=== PATIENT | male | born 1965 | race Caucasian/White ===

== ENCOUNTER 2023-09-23 14:03 | Outpatient (RCR) | payer OTHER, SELFPAY | END 2023-09-30 12:59 | disposition home or self-care (01) | LOC: RPT 14:03 | PROVIDERS: ATTENDING PHYSICIAN Family Medicine | DX: M54.2 Cervicalgia (principal) | CPT/HCPCS: 97110; 97162; 97535 ==

== ENCOUNTER → 2023-09-24 06:51 | Outpatient (REF) | payer OTHER, SELFPAY | LOC: RCS 06:51 | PROVIDERS: ATTENDING PHYSICIAN Nuclear Medicine Nuclear Cardiology; FAMILY PHYSICIAN Family Medicine | DX: R07.9 Chest pain, unspecified (principal); Z13.220 Encounter for screening for lipoid disorders | CPT/HCPCS: 78452; 93017; A9500 ==

== ENCOUNTER 2023-09-25 07:58 | Day surgery (SDC) | payer OTHER, SELFPAY ==
[2023-09-25] VITALS (8 sets, daily range): BP systolic 108–123; BP diastolic 78–91; BMI 29.1
[2023-09-25 09:05] LABS: Hematocrit 44.8 % (39.0-52.0); Hemoglobin 15.8 g/dL (13.0-18.0); Mean Corp Hgb Conc. 35.3 g/dL (33.0-37.0); Mean Corpuscular Hgb 29.8 pg (27.0-31.0); Mean Corpuscular Volume 84.4 fL (80.0-94.0); Mean Platelet Volume 10.4 fL (7.4-10.4); Platelet Count 262 10^3/uL (130-400); Red Blood Cell Count 5.31 10^6/uL (4.70-6.10); Red Cell Dist. Width 12.1 % (11.5-14.5)
--- NOTE | 2023-09-25 11:01 | ITS.CL.CATH ---
Labeler - Catheterization
Cardiac Catheterization
Procedure Report:
LEFT HEART CATHETERIZATION
Date of Procedure: September 25, 2023
Referring: Dr. Margarito Orozco
PROCEDURES:
1. Left heart catheterization with coronary and single-plane left ventriculography
INDICATION: This is a 58-year-old gentleman with a past medical history notable for chest discomfort for the past 8 to 10 months. 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
quickly and pulling his suitcase. He feels the symptoms have been getting worse although have been present for quite some time.
ACCESS: Right radial artery, 6 Chadian sheath
HEMODYNAMICS : (mmHg)
AO (s/d) : 110/79
LV (s/d) : 118/13
LVEDP : 30
CORONARY FINDINGS
DOMINANCE: Right
LEFT MAIN: Normal
LEFT ANTERIOR DESCENDING: The LAD arises normally from the left main and runs in the anterior interventricular groove there is a calcified 50-60% mid LAD stenosis involving the origin of the only sizable diagonal branch which supplies a large
vascular territory. The remainder of the LAD has only minor luminal irregularities and approaches but does not wraparound the apex..
CIRCUMFLEX: The circumflex is a medium caliber nondominant vessel with a long 60% proximal to mid stenosis spanning the origin of the first OM1. The circumflex continues and is noted to have a 90% stenosis in the distal circumflex just before the
bifurcation of OM 2 and OM 3.
RIGHT CORONARY ARTERY: Large-caliber dominant vessel that is occluded in its midportion just beyond an RV marginal branch. The distal vessel is noted to fill via [id number] collaterals and very faint right to right collateral
VENTRICULOGRAPHY: Left ventriculography is performed in an BEAN projection. The digital single-plane left ventricular ejection fraction is estimated at 60%. No regional wall motion abnormalities are noted
RADIATION SUMMARY: Fluoro Time (min): 3.1, Dose (mGy): 232, DAP (Gy.cm2) : 18.5
Closure Device: TR band
CONCLUSIONS
1. Multivessel coronary artery disease with chronic total occlusion of the distal right coronary artery collateralized in a [id number] fashion, diffuse mid circumflex stenosis spanning the origin of OM1, OM 2, and OM 3. Moderate calcific mid
LAD disease spanning the origin of large first diagonal branch.
2. Preserved left ventricular systolic function
RECOMMENDATIONS
1. Consult CT surgery given diffuse nature of coronary disease. Arterial conduits would offer an advantage given graft durability and his age.
Copy to: Dr. Margarito Orozco, Dr. Ivan Crespo
== END 2023-09-25 14:15 | disposition home or self-care (01) ==
LOC: CATH 07:58
PROVIDERS: ATTENDING PHYSICIAN Internal Medicine Interventional Cardiology; CONSULT PHYSICIAN Thoracic Surgery (Cardiothoracic Vascular Surgery); FAMILY PHYSICIAN Family Medicine
DX: I25.10 Atherosclerotic heart disease of native coronary artery without angina pectoris (principal); I25.82 Chronic total occlusion of coronary artery; R07.89 Other chest pain
CPT/HCPCS: 85027; 93458; C1894; Q9967

== ENCOUNTER → 2023-10-06 12:48 | Outpatient (REF) | payer OTHER, SELFPAY | LOC: RCS 12:48 | PROVIDERS: ATTENDING PHYSICIAN Nuclear Medicine Nuclear Cardiology; FAMILY PHYSICIAN Family Medicine | DX: R07.9 Chest pain, unspecified (principal); Z13.220 Encounter for screening for lipoid disorders | CPT/HCPCS: 93306 ==

== ENCOUNTER → 2023-10-14 07:31 | Outpatient (REF) | payer OTHER, SELFPAY | LOC: HWRAD 07:31 | PROVIDERS: ATTENDING PHYSICIAN Thoracic Surgery (Cardiothoracic Vascular Surgery); FAMILY PHYSICIAN Family Medicine | DX: I25.10 Atherosclerotic heart disease of native coronary artery without angina pectoris (principal) | CPT/HCPCS: 71250 ==

== ENCOUNTER 2023-10-22 05:08 | Inpatient (IN) | payer OTHER, SELFPAY ==
[2023-10-09 12:32] VITALS: BMI 29.5
[2023-10-09 12:39] LABS: % Basophils 0.4 % (0-2); % Eosinophils 1.2 % (0-6); % Immature Granulocytes 0.3 % (0-0.5); % Lymphocytes 21.8 % (20.5-51.1); % Monocytes 7.1 % (1.7-9.3); % Neutrophils 69.2 % (42.2-75.2); Absolute Eosinophils 0.1 10^3/uL (0-0.7); Absolute Lymphocytes 1.5 10^3/uL (1.2-3.4); Absolute Monocytes 0.5 10^3/uL (0.1-0.6); Absolute Neutrophils 4.8 10^3/uL (1.4-6.5); Hematocrit 43.8 % (39.0-52.0); Hemoglobin 15.6 g/dL (13.0-18.0); Mean Corp Hgb Conc. 35.6 g/dL (33.0-37.0); Mean Corpuscular Hgb 29.7 pg (27.0-31.0); Mean Corpuscular Volume 83.4 fL (80.0-94.0); Mean Platelet Volume 10.5 fL (7.4-10.4); Nucleated Red Blood Cells % 0 % (-); Platelet Count 274 10^3/uL (130-400); Red Blood Cell Count 5.25 10^6/uL (4.70-6.10); Red Cell Dist. Width 12.2 % (11.5-14.5); White Blood Cell Count 6.9 10^3/uL (4.8-10.8)
[2023-10-09 12:52] LABS: ALT (SGPT) 23 U/L (0-50); AST (SGOT) 26 U/L (17-59); Albumin 4.5 g/dl (3.5-5.0); Alkaline Phosphatase 78 U/L (38-126); Blood Urea Nitrogen 15 mg/dl (9-20); Calcium 9.3 mg/dl (8.4-10.2); Carbon Dioxide 30 mmol/L (22-30); Chloride 102 mmol/L (98-107); Direct Bilirubin 0.2 mg/dl (0.0-0.4); Estimated Creatinine Clearance 65 ml/min; Glucose 95 mg/dl (70-99); INR 0.98; PT 12.8 Sec (11.4-14.6); Potassium 4.4 mmol/L (3.5-5.1); Sodium 141 mmol/L (135-145); Total Bilirubin 0.8 mg/dl (0.2-1.3); Total Protein 6.8 g/dl (6.3-8.2); eGFR > 60.00
[2023-10-09 12:53] LABS: APTT 31.5 Sec (23.4-35.0)
[2023-10-09 13:50] LABS: Urine Albumin Negative (Neg - Trace); Urine Bilirubin Negative (Negative); Urine Character Clear (Clear); Urine Color Yellow; Urine Glucose Negative (Negative); Urine Ketone Negative (Negative); Urine Leukocyte Negative (Negative); Urine Nitrite Negative (Negative); Urine Occult Blood Negative (Negative); Urine Urobilinogen Negative (Neg - 1+)
--- NOTE | 2023-10-09 14:13 | CM ---
CM following for DC planning needs.
CM met w/ patient and spouse during PATs for planned CABG, 10/18.
Patient resides w/ spouse, 3 children 16, 13 11 yo in a RV on his home's property as his home is undergoing renovations.
RV is accessible via 2 SHO.
Functionally, patient is indep. w/ ADLs, mobility without the use of assisted device.
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
Reviewed pre and post op routines.
Soap, shower instructions and Cardiac Surgery booklet provided.
Discussed post op restrictions to include lifting, driving, flying and sternal precautions.
Reviewed post op MD appointments, Cardiac Rehab and visit from CT Transitional Care RN.
Plan is for CABG 10/18
Anticipated DC plan is for home w/ CT Transitional Care RN.
CM to follow.
[2023-10-09 14:18] LABS: Glycohemoglobin (HgbA1c) 5.6 % (4.0-5.6)
[2023-10-22] VITALS (9 sets, daily range): BP systolic 84–125; BP diastolic 61–84; BMI 29.1
[2023-10-22] MEDS: MAGNESIUM OXIDE 500 MG PO (05:28)
[2023-10-22] MEDS: PROTONIX 40 MG PO (05:28)
[2023-10-22] MEDS: BACTROBAN 2% OINTMENT 1 APPLIC NASAL ×2 (05:28→19:12)
[2023-10-22] MEDS: LOPRESSOR 12.5 MG PO (05:30)
--- NOTE | 2023-10-22 06:00 | PTCARENOTE ---
pt admitted into room 2263, VS and weight obtained. pt confirms 2 showers @ home and NPO since 1829 last evening. admission questions and med rec completed. clip prep and CHG cloth bath done. ABO drawn and sent. pre-op meds given. pt now resting
comfortably w @ bedside.
--- NOTE | 2023-10-22 06:22 | W.CVOR.SURPR ---
CVOR Surgeon Immed Pre Op
-
I have examined this patient prior to performance of the scheduled procedure.
The patient's condition is unchanged from the time of the dictated/written History and
Physical and the patient is able to undergo the scheduled procedure.
CABG
[2023-10-22 07:39] LABS: Urine Albumin Negative (Neg - Trace); Urine Bilirubin Negative (Negative); Urine Character Clear (Clear); Urine Color Yellow; Urine Glucose Negative (Negative); Urine Ketone Negative (Negative); Urine Leukocyte Negative (Negative); Urine Nitrite Negative (Negative); Urine Occult Blood Negative (Negative); Urine Urobilinogen Negative (Neg - 1+)
[2023-10-22 08:08] LABS: ACT+ - POC 87 Seconds (82-134)
--- NOTE | 2023-10-22 08:25 | CM ---
Reviewed chart. Mr. Hartman is in the operating room today. Prior to admission he resides with his spouse and three children in a RV to with two steps to enter. He is in the RV temporary as his home is under going renovations. The RV is located
on his property. Prior to admission he was independent with ambulation and adls. He does not have any DME in the home. He has a prescription plan and uses [facility]. Medical work-up in progress. The discharge plan is to return home with his
spouse and a home visit by the Cardiothoracic Transitional Care Nurse when medically stable.
[2023-10-22 10:16] LABS: ACT+ - POC 995 Seconds (82-134)
[2023-10-22 10:17] LABS: B.E. - POC -1.4 mmol/L; Glucose - POC 95 mg/dl (70-99); HCO3 - POC 22 mmol/L (21-29); Hematocrit - POC 36 % PCV (42-52); Hemodilution- POC No; Hemoglobin Calculated - POC 12.1; Ionized Calcium - POC 1.13 mmol/L (1.12-1.27); O2 Saturation %Calculated-POC 98.9 5 (92-96); PCO2 - POC 34 mmHg (35-45); PO2 - POC 124 mmHg (80-100); POC Comment PRE; Potassium - POC 4.3 mmol/L (3.6-5.0); Sodium - POC 138 mmol/L (135-145); pH - POC 7.43 (7.35-7.45)
[2023-10-22 10:57] LABS: B.E. - POC 2.5 mmol/L; Glucose - POC 127 mg/dl (70-99); HCO3 - POC 26 mmol/L (21-29); Hematocrit - POC 32 % PCV (42-52); Hemodilution- POC Yes; Ionized Calcium - POC 1.03 mmol/L (1.12-1.27); PCO2 - POC 37 mmHg (35-45); PO2 - POC 373 mmHg (80-100); POC Comment CPB; Potassium - POC 4.9 mmol/L (3.6-5.0); Sodium - POC 139 mmol/L (135-145); pH - POC 7.46 (7.35-7.45)
[2023-10-22 11:17] LABS: ACT+ - POC 764 Seconds (82-134)
[2023-10-22 11:43] LABS: B.E. - POC 2.1 mmol/L; Glucose - POC 161 mg/dl (70-99); HCO3 - POC 27 mmol/L (21-29); Hematocrit - POC 33 % PCV (42-52); Hemodilution- POC Yes; Hemoglobin Calculated - POC 11.3; Ionized Calcium - POC 1.09 mmol/L (1.12-1.27); O2 Saturation %Calculated-POC 99.8 5 (92-96); PCO2 - POC 41 mmHg (35-45); PO2 - POC 221 mmHg (80-100); POC Comment CPB; Potassium - POC 4.6 mmol/L (3.6-5.0); Sodium - POC 140 mmol/L (135-145); pH - POC 7.43 (7.35-7.45)
[2023-10-22 11:46] LABS: ACT+ - POC 109 Seconds (82-134)
[2023-10-22 11:54] LABS: ACT+ - POC 109 Seconds (82-134)
[2023-10-22 12:00] LABS: Glucose - POC 144 mg/dl (70-99); HCO3 - POC 22 mmol/L (21-29); Hematocrit - POC 32 % PCV (42-52); Hemodilution- POC Yes; Hemoglobin Calculated - POC 10.9; Ionized Calcium - POC 1.36 mmol/L (1.12-1.27); O2 Saturation %Calculated-POC 99.4 5 (92-96); PCO2 - POC 36 mmHg (35-45); PO2 - POC 154 mmHg (80-100); POC Comment POST; Potassium - POC 3.8 mmol/L (3.6-5.0); Sodium - POC 142 mmol/L (135-145); pH - POC 7.41 (7.35-7.45)
--- NOTE | 2023-10-22 12:31 | W.PN.CT.SURG ---
CT Surgery Operative Note
-
CARDIAC SURGERY OPERATIVE REPORT
Preoperative Diagnosis: Multivessel Coronary Artery Disease with Exertional Angina
Postoperative Diagnosis: Same
Procedure(s) Performed:
1. Standard Sternotomy with Aortic and Right Atrial Cannulation
2. Multi Arterial Coronary artery bypass grafting x 4 (In situ LUO to LAD, Ao to RSVG to OM1, Vein sheldon to L radial artery to OM2, Ao to RSVG to RPDA)
3. Endoscopic vein harvesting of the RLE and Endoscopic left radial artery harvest
4. Transesophageal echocardiography
5. Placement temporary ventricular pacing wire
Date of Surgery: 10/22/2023
Comorbidities:
1. Multivessel coronary artery disease with exertional angina
2. Significant family history for CAD
3. Hypertension
4. Hyperlipidemia
5. Osteoarthritis
6. Nephrolithiasis
7. Diverticulosis
Attending Surgeon: Alfredo Powell MD, MS
Assistants: Cherie Parham PA-C (present and necessary to assistant community manager, endoscopic vein harvest, retraction, suction, exposure, suture management, and wound closure under my direction), Alfredo Hernandez PA-C (endoscopic left radial artery harvest)
Anesthesiology: Yoan Novak MD and Mariam Cheng CRNA
Scrub and Circulating RNs: Benji Jarquin, RN, Risa Hall RN
Baggagemaster: Sanjana Rodriguez CCP
Anesthesia: GETA
EBL: per perfusion records
Products: None
CPB Time: 88 minutes
Aortic Cross Clamp Time: 78 minutes
Indication(s) for Procedures: This is a 58-year-old male with known multivessel coronary disease who presents with chest discomfort and indigestion for the past 8 to 10 months. He was found to have multivessel coronary disease with exertional
angina. Given his disease pattern, young age, and symptoms, he was offered coronary revascularization.
Conduit(s) Quality:
LUO -good/relatively thin-walled, decent caliber, good visual flow
RSVG -good/there are some intermittent segments that were narrow with varicosities that were able to be excluded, not significantly thickened
Target(s) Quality:
RCA/PDA -excellent/decent caliber and thickness, excellent flow probe numbers with mean flows in the 30s to 40s with a pulsatility index of 3 or less
OM1 -excellent/good caliber vessel due to the lack of significant proximal disease, vein graft was placed here. Flow probe assessment was excellent numbers with mean flows in the 40s to 50s with a pulsatility index of less than 3
OM2 -good/thin-walled and smaller caliber vessel, due to the significant proximal disease, a radial artery graft was grafted here, flow probe assessment with a mean flow in the 20s to 30s with a pulsatility index of less than 3
LAD -excellent/good caliber vessel, excellent visual flow and runoff upon release of the bulldog clamp
Findings: Left ventricular ejection fraction preoperatively was 60%. Following surgery his EF remained the same with no new regional wall motion abnormalities. The left radial artery was harvested in an endoscopic fashion. The LUO was harvested
in a skeletonized fashion. Following bypass grafting, test dose cardioplegia was given down each distal and confirmed patency and hemostasis. Each distal was probed both proximally and distally to confirm disease and patency, respectively. Flow
probe was used for assessment of flows at the conclusion of the case and was considered to be good in all grafts. No products required. No inotropic support was required. He regained sinus rhythm at a conclusion of the case. Due to the length,
the left radial artery was taken off the sheldon of the vein graft leading to OM1.
Description of Procedure: The patient was taken to the operating room. Their identity and procedure to be performed were verified and they were positioned supine on the operating table. Induction via general anesthesia with endotracheal intubation
was performed and central venous access and arterial monitoring were inserted. A preoperative transesophageal echocardiogram was performed to assess cardiac function and valvular function. The patient was then prepped and draped from chin to feet in
a sterile fashion. A preoperative time-out was performed with all members of the team present. A midline chest incision was performed along with median sternotomy. Simultaneous endoscopic access of the right lower extremity for saphenous vein
harvest and left radial artery for arterial graft was obtained along with administration of an initial 5,000 units of IV heparin. A RulTract sternal retractor was positioned to exposure the left internal mammary bed. The mammary was harvested and
found to have good flow. A bulldog clamp was applied to the distal end of the mammary after dividing it. It was wrapped in a papaverine soaked RayTec and replaced back into the left hemithorax. The RulTract was exchanged for a median sternal
retractor. The innominate vein was isolated. Full heparinization was given (a total of 45,000 units). We created a pericardial well. The aortic cannulation site was chosen where it was soft, pliable, and free of calcium. Cannulation was performed
with an arterial cannula in the ascending aorta and a triple-stage venous cannula through the right atrial appendage. The arterial cannula line had an appropriate bounce and correlating pressures with test dosing. Next, a root vent/antegrade cannula
was inserted into the ascending aorta. The ACT was confirmed to be over 400 and retrograde autologous priming was performed before commencing cardiopulmonary bypass. The pulmonary artery was away from the aorta to facilitate a clamp site.
The aortic cross-clamp was placed after decreasing the flow on the bypass and mean arterial pressure. A total of 1.2L initial dose of antegrade Del-Nido cardioplegia solution was given and planned for re-dosing every 75 minutes as necessary. There
was rapid electro-mechanical arrest of the heart at 370 cc of cardioplegia. The left ventricle was observed for distention on echocardiogram and manual palpation. Cold slush was placed into a sponge and topically on the RV while we systemically
cooled to 34 degrees centigrade.
I positioned the heart to expose the distal right coronary at the posterior descending artery. A mcgrath blade was used to expose the coronary and perform the arteriotomy. Coronary Jenkins scissors were used to enlarge the incision. The saphenous vein
was trimmed and beveled to an appropriate size. The distal anastomosis was performed using 7-0 prolene in an end-to-side fashion. Antegrade cardioplegia was administered into the graft. Appropriate hemostasis and flow were confirmed. The graft was
measured for length to the aorta and cut. A suitable site on the second obtuse marginal was chosen at the largest branch. We dissected and prepared the distal target in a similar fashion. An end-to-side anastomosis was created with a 8-0 prolene
using the radial artery graft. Antegrade cardioplegia was administered into the graft using an 18-gauge Angiocath. Appropriate hemostasis and flow were confirmed. Next the first obtuse marginal was repaired in a similar fashion. The vein graft was
beveled accordingly and end-to-side anastomosis was created with 7-0 Prolene in a running fashion. Test dose of antegrade was given down the graft to verify both hemostasis and flow. The vein graft was then measured to the appropriate length in
the aorta and cut. A suitable target on the mid left anterior descending was identified. We dissected and prepared the distal target in a similar fashion. We retrieved the LUO from the chest and created a pericardial opening while being cognizant
of the phrenic nerve to facilitate the course of the mammary. The distal end of the mammary was prepped and beveled to size. We verified orientation and length of the LORIE and found brisk flow. An end-to-side anastomosis was created with a 7-0
prolene. We temporarily released the bulldog clamp on the mammary to inspect flow. Perfusion to the LAD territory was visualized and hemostasis was confirmed. The bull clamp was replaced on the mammary. The heart was filled and the root was
distended with antegrade cardioplegia to make final assessment of graft length and orientation. We created 2 aortotomies using a #11 blade then a 4.0mm aortic punch. The proximal anastomoses were created in an end-to-side fashion using 6-0 prolene.
A small venotomy was created on the sheldon of the vein graft leading to the first OM. The radial artery proximal end was spatulated accordingly and using 7-0 Prolene in end to side anastomosis was created in a running fashion. At the the same time,
we re-warmed to 36.5 degrees centigrade. The bulldog clamp was removed from the mammary. Temporary bipolar ventricular pacing wires were placed on the base of the right ventricle. The patient was placed in a Trendelenburg position and flows on
bypass were lowered. The aortic cross clamp was removed and flows were slowly brought back up. A 30-gauge needle was used to de-air the vein grafts. All bypass grafts were inspected and were free from kinking or twisting. The distal and proximal
anastomoses appeared hemostatic. Once transesophageal echocardiography appeared satisfactory for de-airing, the flows were temporarily lowered for root vent removal. After verifying acceptable parameters, we initiated weaning from cardiopulmonary
bypass. Once we were off cardiopulmonary bypass, the venous cannula was clamped and removed. Flow probe was used to assess graft patency and flow at this point. A test dose of protamine was administered and the patient was monitored for any
adverse reaction before resuming protamine. Once half of the protamine dose was delivered, pump suckers were turned off and the systolic blood pressure was lowered for aortic decannulation. The aortic cannula was removed and pursestrings were tied
down. All cannulation sites were oversewn with a 4-0 prolene. The mammary bed was inspected and hemostasis was confirmed. Once the mediastinum was hemostatic, 19Fr Mehrdad drain was placed in the left pleural cavity and two 24Fr Mehrdad drains were
placed within the pericardium. The sternum was approximated with 4 #7 single and 3 #8 double stainless steel wires. Fascia was approximated with #1 vicryl suture. The subcutaneous, dermis and epidermis were closed in layers in a running fashion. The
skin wound was cleansed and dressed.
All instrument, sponge, and needle counts were confirmed to be correct x 2 at the end of the operation. The patient was transferred to the cardiac intensive care unit in critical but stable condition.
I, Dr. Alfredo Powell, was present, scrubbed for, and performed all critical elements of this procedure.
Alfredo Powell MD, MS
Cardiothoracic Surgeon
[facility]
This operative dictation was created using the [employer] dictation system. Please excuse any grammatical, typographical, or 'sound alike' errors
--- NOTE | 2023-10-22 12:45 | PTCARENOTE ---
Patient received from CVOR at 1245, sedated and intubated. Sinus vasile on the monitor, VSS. Epicardial v wires present with VVI pacer settings 30/10mA. Lungs clear, 8.0 ETT positioned and secured at 23 cm R lip. Ventilator settings SIMV 12/500/5/5
FiO2 60%. CTx3 to -20 cm wall suction draining sanguinous drainage, no air leak or crepitus, tidaling noted in mediastinal. Hypoactive BS abdomen soft. Hunter catheter in place draining yellow urine. Skin dry, cool, midline sternal incision CDI with
skin glue CARON. L radial graft site with beny wrap, ecchymosis around the site otherwise CDI no drainage. Distal pulse weak TP. R groin site CHANNEL LIP WETTER w/ Dermabond, surrounding skin CDI. RSVG site CDI with beny wrap, distal pulse heard with Doppler.
Rawson R radial artery, line zeroed/level. Cordis present in RIJ. PIV 18 gauge in R forearm. Levophed, insulin, Precedex, and Cardizem running. See worklist for titration details.
[2023-10-22 12:49] LABS: Glucose - Point of Care 144 mg/dl (70-99)
--- NOTE | 2023-10-22 12:50 | W.PN.UPDATE ---
Update Note
Progress Note Update
58-year-old male electively admitted on 10/22/2023 for CABG due to triple-vessel coronary disease with preserved EF
IV fluids: 1200
U.O.:� 700
UF:� 750
Blood:� none
Wires:� bipolar V-wire
Gtts:� Levophed @ 5, Cardizem @ 2.5, Precedex @ 0.5
�
�
NEURO: sedated on Precedex, pupils +2mm B/L
RESP: #8OT 23> 500/60%/14/5. Lungs clear B/L. 2 mediastinal (5cc on arrival) and L pleural (5cc on arrival) chest tubes to -20cm suction. Sanguineous drainage
CV: RRR +S1, S2, no S3, no�rub, no murmur. Dermabond to median sternotomy. RIJ w/[place]
ABD: round, soft, no BS
EXT: no edema, +2/4 DP pulses B/L, no femoral bruit, LUE JEFF wrap intact; right radial A-line intact
: Hunter with clear yellow urine
�
A/P: POD #0 s/p CABG LUO-LAD; Radial-OM; SVG-OM; SVG-PDA
OTILIA: EF�60-65%
- wean and extubate
# CAD
-will require ASA/Plavix, statin, beta-mariah
�
# acute surgical blood loss anemia-expected
- trend CBC
�
�# Incidental 1cm ground glass opacity RUL (CT chest 10/14/23)
- outpatient F/U CT chest recommended in 6 months
�
# Hyperlipidemia
- resume�statin
--- NOTE | 2023-10-22 13:08 | W.PN.CARDCBS ---
Today's Communication / Plan
-
Supportive postop care
Continue hemodynamic and telemetry monitoring
Wean vent as tolerated
Impression / Plan
-
PCP: Jose A Haile MD
Primary downstream biomanufacturing technician: Margarito Orozco,
Impression:
multivessel coronary artery disease status post CABG x 4 (in situ LUO to LAD, aorto to R SVG to OM1, vein sheldon to left radial artery to OM 2, aorto to R SVG to RPDA), POD 0
Hyperlipidemia
inguinal hernia repair, laparoscopic 01/01
Insomnia
Cardiovascular studies:
Exercise MIBI stress test 09/24/2023: 9 minutes, 10 METS, inferior and inferior septal ischemia, no scar
Cardiac catheterization 09/25/2023: Left main: normal; LAD: 50 to 60% mid spanning origin of large D1; circumflex: 60% proximal, spanning origin of OM1, 90% distal spanning origin of OM 2 and 3; RCA occluded in midportion distal vessel fills via
collaterals, EF 60%
Echocardiogram: EF 60 to 65%, normal chamber size and wall thickness, structurally normal valves
EK10/22/23: SB 51, no ischemic changes
Lipid profile 09/17/23: LDL 139, HDL 52, TG166, Tchol 221 (off meds)
HgbA1c 09/17/23 5.9
Plan:
-mulitivessel CAD s/p CABG x 4 POD 0, no blood products intraoperatively
-remains intubated/sedated, wean to extubate
-currently on Levophed 5 mcg/min, BP 100/61. Wean per protocol
-Cardene gtt s/p radial graft. Switched from Cardizem gtt due to bradycardia, monitor HR trends
-telemetry personally reviewed: NSR/SB
-post op EKG: sinus bradycardia, no ST-T changes from baseline EKG
-supportive postop care
-high intensity statin, LDL 139 10/02 (off meds)
Progress Note - Catastrophe Claims Supervisor
Subjective
Date of Service: October 22, 2023
Status post CABG x 4
intubated and sedated
On Levophed 5 mcg/min
Objective
Labs:
Labs
Hgb 15.6 g/dL (13.0-18.0) 10/09/23 12:28
Hct 43.8 % (39.0-52.0) 10/09/23 12:28
Plt Count 274 10^3/uL (130-400) 10/09/23 12:28
PT 12.8 Sec (11.4-14.6) 10/09/23 12:28
INR 0.98 10/09/23 12:28
APTT 31.5 Sec (23.4-35.0) 10/09/23 12:28
Sodium 141 mmol/L (135-145) 10/09/23 12:28
Potassium 4.4 mmol/L (3.5-5.1) 10/09/23 12:28
BUN 15 mg/dl (9-20) 10/09/23 12:28
Creatinine 1.2 mg/dL (0.7-1.3) 10/09/23 12:28
Glucose 95 mg/dl (70-99) 10/09/23 12:28
Vital Signs and I&O:
Vital Signs
Temp Pulse Resp BP Pulse Ox
98.8 F 66 18 119/84 100
10/22/23 05:32 10/22/23 05:32 10/22/23 05:32 10/22/23 05:15 10/22/23 12:53
Vital Signs
Temp Pulse Resp BP Pulse Ox
98.8 F 66 18 119/84 100
10/22/23 05:32 10/22/23 05:32 10/22/23 05:32 10/22/23 05:15 10/22/23 12:53
Physical Exam
Physical Exam
GEN: Intubated, sedated
HEENT: mmm
LUNGS: CTA, no wheezes/rales
CV: Reg, S1/S2, loud rub
ABD: soft, BS+, NT/ND
EXT: No edema. 1+ bilateral DP pulse
SKIN: Warm, dry, sternal incision well-approximated
[2023-10-22 13:09] LABS: INR 1.36; PT 16.9 Sec (11.4-14.6)
[2023-10-22 13:11] LABS: Hematocrit 36.2 % (39.0-52.0); Hemoglobin 12.9 g/dL (13.0-18.0); Platelet Count 243 10^3/uL (130-400)
[2023-10-22] MEDS: CARDIZEM 125 IV (13:13)
[2023-10-22] MEDS: ANCEF 10 IV ×2 (13:13)
[2023-10-22] MEDS: NEURONTIN PO ×2 (13:13→14:44)
[2023-10-22 13:14] LABS: B.E. -0.1 mmol/L; HCO3 23.9 mmol/L (21-28); Ionized Calcium 1.21 mMOL/L (1.15-1.33); PCO2 36 mmHg (35-48); PO2 189 mmHg (83-108); Potassium 3.9 mMOL/L (3.5-5.1); Sodium 136 mMOL/L (136-145); pH 7.43 (7.35-7.45)
[2023-10-22] MEDS: NSS 500 IV (13:14)
[2023-10-22] MEDS: TYLENOL PO (13:14)
[2023-10-22 13:22] LABS: O2 Therapy vent
[2023-10-22] MEDS: KCL 50 IV ×2 (13:28→14:43)
--- NOTE | 2023-10-22 13:28 | CON.INTV ---
Consultation
Consultation Request
Date/Time Consultation Requested: 10/22/2023 - 1153
Date/Time Consultation Performed: 10/22/2023 - 1220
Requesting Provider: Jolanta ANDRADE
Performing Provider: Ritchie Crain MD
Reason for Consultation: s/p CABG x4
Medical History
-
Chief Complaint: Elective CABG
History of Present Illness:
58-year-old male with a past medical history of multivessel CAD, hypertension, hyperlipidemia, insomnia, seasonal allergic rhinitis and nephrolithiasis who presents with elective CABG. Patient known to cardiothoracic surgery with last visit on
10/06/[address] Powell. Patient has multivessel CAD with chest pain, back pain and left jaw pain radiating to neck for the last 8-10 months. His chest pain has progressed. 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 He had a left heart
catheterization performed on 09/25/2023 showing RAILROAD CAR CHECKER of the RCA and proximal LAD disease. Surgical revascularization was discussed including its risks and benefits, and today he underwent CABG x 4. There were no immediate complications and he was
transferred to the CVICU postoperatively for further care; Office Support Associate services consulted for additional management/recommendations.
When I saw the patient he was in bed, intubated on SIMV at 12/500/40%/5, with PS of 5. His PIP was 18 cmH2O, he was breathing at 12 breaths/min and VTe was 519 mL. Heart rate 51, BP via right radial A-line: 100/61, SpO2 100% and BP via NIBP:
95/70. He has mediastinal chest tubes x 2+ left pleural chest tube x 1. He is currently on insulin drip with 3 units/hr + Levophed at 7mcg/min.
PMHx: Multivessel CAD, hypertension, hyperlipidemia, osteoarthritis, nephrolithiasis, diverticulosis, insomnia, seasonal allergic rhinitis
PSHx: [place] teeth removal, left inguinal hernia surgery, cyst removal from head
Past Medical History
Past Medical History: Other (Above as per HPI)
Past Surgical History: Other (Above as per HPI)
Social History
Tobacco: Non-smoker
Alcohol: Occasional (1-2 drinks per about 2-3 times per week)
Drug: None
Personal:
Living: With Family
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
Family History
Family History: CAD (Maternal grandfather), Hypertension (Mother) and Other (Father: of a CVA at age 76, history of brain aneurysm; Mother: Glaucoma, colon polyp, carpal tunnel s/p surgery)
Allergies / Home Medications
Allergies
Allergy/AdvReac Type Severity Reaction Status Date / Time
aspartame Allergy Mild Jitters Verified 10/07/23 13:16
No Known Drug Allergies Allergy NA Verified 10/07/23 13:16
pollen extracts Allergy Sinus Verified 10/07/23 13:16
congestion;
itching
Home Medications
�Medication �Instructions �Recorded �Confirmed �Last Taken �Type
aspirin 81 mg chewable tablet 81 mg PO DAILY 09/25/23 10/22/23 10/21/23 History
metoprolol succinate 25 mg 12.5 mg PO QPM 09/25/23 10/22/23 10/21/23 History
tablet,extended release 24 hr
rosuvastatin 20 mg tablet 20 mg PO QPM 09/25/23 10/22/23 10/21/23 History
zolpidem 10 mg tablet 10 mg PO HS PRN insomnia 10/07/23 10/22/23 10/21/23 History
Review of Systems
-
Unable to Obtain full review of systems at this time due to: Patient Intubation
Vitals / Labs / Diagnostic Testing
Vital Signs
Temp Pulse Resp BP Pulse Ox
97.2 F 52 12 101/61 99
10/22/23 14:00 10/22/23 14:00 10/22/23 14:00 10/22/23 14:00 10/22/23 14:00
Lab Data
10/22/23 12:44
Laboratory Results
10/22/23
12:44
PT 16.9 H
INR 1.36
APTT 30.0
pH 7.43
pCO2 36
pO2 189 H
HCO3 23.9
O2 Delivery Level vent
Diagnostic Testing:
Physical Exam
-
HEENT: Normocephalic, Anicteric and Other (ETT in place)
Cardiovascular: S1/S2 and Peripheral Edema (negative)
Respiratory: Wheeze (negative), Rales (negative), Rhonchi (negative), Non-Labored Respirations and Other (Mechanical breath sounds heard bilaterally)
GI: Soft, Non Distended, Non Tender and Normal Bowel Sounds
Neurology: Tremors (negative) and Other (Sedated)
Skin: Warm and Dry
General: Respiratory Distress (negative), Fever (negative), Chills (negative) and Sweats (negative)
Assessment
-
Assessment: 58-year-old male with a past medical history of multivessel CAD, hypertension, hyperlipidemia, insomnia, seasonal allergic rhinitis and nephrolithiasis who presents with elective CABG. Patient known to cardiothoracic surgery with last
visit on 10/06/[address] Powell. Patient has multivessel CAD with chest pain, back pain and left jaw pain radiating to neck for the last 8-10 months. His chest pain has progressed. 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 He had a left heart
catheterization performed on 09/25/2023 showing RAILROAD CAR CHECKER of the RCA and proximal LAD disease. Surgical revascularization was discussed including its risks and benefits, and on 10/22/2023 he underwent CABG x 4. There were no immediate complications and he
was transferred to the CVICU postoperatively for further care; Office Support Associate services consulted for additional management/recommendations.
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
Impression:
#Multivessel CAD with exertional angina s/p CABG x 4 (POD #0)
#Anemia
#Insomnia
#History of hypertension
#History of hyperlipidemia
#Seasonal allergic rhinitis
#Right upper lobe 1 cm groundglass opacity
Plan:
Ventilator settings reviewed
FiO2 will be weaned to maintain SpO2 >90-94%
Minute ventilation will be adjusted
Arterial blood gases will be monitored
Spontaneous breathing trial will be attempted with hopeful extubation after anesthesia/sedation wear off
prn nebulized bronchodilators
Pulmonary artery catheter parameters will be followed
Pressors/antihypertensive/inotropes/diuretics will be provided as needed
Maintain MAP>65
Replete electrolytes with K>4, Mg>2
Monitor chest tube output (mediastinal x 2+ left pleural chest tube)
Monitor hemoglobin
Monitor platelet count and coags
Transfuse blood products as needed to maintain Hb>7g/dL, plt>50k (given post-operative status)
CT surgery managing chest tubes
Monitor blood sugar to maintain euglycemia with goal BG 140-180
Insulin drip per protocol
Aspiration precautions
VAP prevention protocol
DVT prophylaxis
Early nutrition
Early mobilization
On CT chest from 10/14/2023 he has a 1 cm groundglass opacity in the right upper lobe. I will arrange for outpatient office follow-up to discuss obtaining an interval CT chest in about 3 to 6 months.
Critical care statement: A total of 46 minutes of critical care time was provided for this patient today. This includes management of ventilator, spontaneous breathing trial, arterial blood gases, pressors, of unstable vital signs, evaluation of the
patient at bedside, reviewing the patient's pertinent medical records including radiographs, microbiology, laboratory evaluations, and discussion with primary team and critical care nursing.
Data:
CXR 10/22/2023: Support apparatus in position including endotracheal tube with tip in trachea above the arin. No pneumothorax.
CT Chest without contrast 10/14/2023:
1. Moderate coronary arterial calcification, consistent with patient's history of coronary artery disease.
2. 1 cm groundglass opacity within the right upper lobe. As per Fleischner Society criteria, follow-up chest CT is suggested in 6-12 months.
[2023-10-22 13:37] LABS: Blood Urea Nitrogen 18 mg/dl (9-20); Estimated Creatinine Clearance 79 ml/min; Glucose 147 mg/dl (70-99); Magnesium 2.6 mg/dl (1.6-2.3)
[2023-10-22 14:04] LABS: Glucose - Point of Care 139 mg/dl (70-99)
[2023-10-22 14:35] LABS: ACT+ - POC > 1003 Seconds (82-134)
[2023-10-22] MEDS: PACERONE PO (14:44)
[2023-10-22 15:10] LABS: Glucose - Point of Care 138 mg/dl (70-99)
--- NOTE | 2023-10-22 15:28 | PTCARENOTE ---
CPAP wean attempted after patient spontaneously awoke. Patient displayed multiple episodes of apnea while attempting to CPAP. RT contacted, patient placed back to [facility].
[2023-10-22 16:03] LABS: Glucose - Point of Care 120 mg/dl (70-99)
[2023-10-22] MEDS: OFIRMEV 100 IV (16:14)
[2023-10-22 16:52] LABS: B.E. -2.8 mmol/L; HCO3 23.2 mmol/L (21-28); O2 Saturation % 99.6 % (94-98); PCO2 44 mmHg (35-48); PO2 163 mmHg (83-108); pH 7.33 (7.35-7.45)
[2023-10-22 17:04] LABS: Hematocrit 36.4 % (39.0-52.0); Hemoglobin 13.1 g/dL (13.0-18.0); Platelet Count 322 10^3/uL (130-400)
[2023-10-22 17:06] LABS: Glucose - Point of Care 120 mg/dl (70-99)
[2023-10-22] MEDS: DILAUDID 0.25 MG IV ×2 (17:27→23:07)
[2023-10-22] MEDS: ZOFRAN 4 MG IV (17:28)
[2023-10-22] MEDS: CRESTOR PO (17:32)
[2023-10-22] MEDS: TORADOL 15 MG IV (17:59)
[2023-10-22] MEDS: ANCEF 5 IV (18:01)
[2023-10-22] MEDS: LOW STRENGTH ASPIRIN 81 MG PO (18:05)
[2023-10-22] MEDS: LR 250 ML IV ×2 (18:17→19:50)
[2023-10-22 19:08] LABS: Glucose - Point of Care 137 mg/dl (70-99)
--- NOTE | 2023-10-22 19:30 | PTCARENOTE ---
Care of patient continued. Patient reported some relief of pain after Toradol and Dilaudid. Asleep in bed. NC reduced to 4LPM. Patient vomited x1, INDUCTION COORDINATION POWER ENGINEER aware, Reglan ordered for c/o nausea. VSS, assessment of needs ongoing.
[2023-10-22] MEDS: REGLAN 10 MG IV (19:41)
[2023-10-22 20:17] LABS: B.E. -3.2 mmol/L; Ionized Calcium 1.11 mMOL/L (1.15-1.33); PCO2 39 mmHg (35-48); PO2 145 mmHg (83-108); Potassium 4.9 mMOL/L (3.5-5.1); pH 7.36 (7.35-7.45)
[2023-10-22 20:20] LABS: Mixed Venous O2 Saturation 73.2 %
[2023-10-22] MEDS: LEVOPHED 250 IV (20:30)
--- NOTE | 2023-10-22 20:30 | PTCARENOTE ---
Patient received resting in bed. Patient A+A+Ox3. No neurological deficits noted. Patient with c/o nausea. Vomited 100 ml clear to whitish emesis. IV Reglan 10 mg ordered by MARYBETH and given without difficulty. No further vomiting. O2 at 4L via
NC. SaO2 99%. Three chest tubes - Mediastinal x2 and Left Pleural - Intact and patent - 5-20 ml red drainage - No air leak, tidaling or crepitus noted. Chest tube dressing intact. No s/s of respiratory distress. Sinus Bradycardia to Sinus
Rhythm. Heart rate 50-60's. VVI Rate 30, Output 6, Sensitivity 2.0. Patient with no c/o chest pain, pressure or discomfort. Hypoactive bowel sounds. No BM. Hunter catheter - Intact and patent - Temperature sensing - Outputs as documented. Left
radial graft site - Positive Ulnar pulse via Doppler - Edema - Positive circulation, sensation and mobility - No c/o numbness, tingling, pain or discomfort. Right I.J. Cordis with [place] catheter - Intact and patent. CVP 6-7. Right radial arterial
line. A-Line and CVP to pressure bag/saline flush. Levophed gtt at 6 mcq/min (22.5 ml/hr). Sternal incision - Intact - Surgical adhesive. Right groin puncture site. Right knee incision - Coban Darek Wrap. Insulin gtt - Glycemic Protocol.
Decreased urine output - IV LR Bolus 250 ml. Patient with no c/o back or flank pain. Assessment as documented.
[2023-10-22] MEDS: CALCIUM CHLORIDE 10% SYRINGE 50 ML IV (20:50)
[2023-10-22] MEDS: CALCIUM CHLORIDE 10% SYRINGE 50 MG IV (20:50)
[2023-10-22 21:04] LABS: Glucose - Point of Care 94 mg/dl (70-99)
[2023-10-22] MEDS: SENOKOT-S 1 TABLET PO (21:10)
[2023-10-22] MEDS: NEURONTIN 100 MG PO (21:11)
[2023-10-22] MEDS: TYLENOL 1000 MG PO (21:11)
[2023-10-22] MEDS: DILAUDID 0.5 MG IV (21:12)
--- NOTE | 2023-10-22 21:30 | PTCARENOTE ---
Arterial Blood Gas and Mixed Venous ordered by PA. Collected and sent. Mixed Venous 73.2. Ionized Calcium 1.11. Calcium chloride 1,000mg/50m IV over 1hr ordered and infusing without difficulty via Right I.J. Cordis. Patient with c/o 09/18
sternal pain - IV Dilaudid 0.5mg administered without difficulty. Positive relief provided. No further changes from previous assessment.
[2023-10-22 22:59] LABS: Glucose - Point of Care 126 mg/dl (70-99)
[2023-10-22] MEDS: ROXICODONE 5 MG PO (23:06)
[2023-10-23] VITALS (29 sets, daily range): BP systolic 80–119; BP diastolic 28–77; PULSE 86; O2SAT 92–96; BMI 29.7
--- NOTE | 2023-10-23 | PTCARENOTE ---
Patient sleeping without difficulty. No further changes from previous assessment.
[2023-10-23 01:08] LABS: Glucose - Point of Care 103 mg/dl (70-99)
[2023-10-23 03:26] LABS: Glucose - Point of Care 118 mg/dl (70-99)
[2023-10-23] MEDS: DILAUDID 0.25 MG IV ×2 (03:35→20:28)
[2023-10-23] MEDS: ANCEF 5 IV ×2 (03:35→11:30)
[2023-10-23 03:49] LABS: Hematocrit 34.3 % (39.0-52.0); Hemoglobin 12.3 g/dL (13.0-18.0); Mean Corp Hgb Conc. 35.9 g/dL (33.0-37.0); Mean Corpuscular Hgb 29.9 pg (27.0-31.0); Mean Corpuscular Volume 83.5 fL (80.0-94.0); Mean Platelet Volume 10.9 fL (7.4-10.4); Platelet Count 261 10^3/uL (130-400); Red Blood Cell Count 4.11 10^6/uL (4.70-6.10); Red Cell Dist. Width 12.2 % (11.5-14.5); White Blood Cell Count 20.5 10^3/uL (4.8-10.8)
[2023-10-23 04:10] LABS: Blood Urea Nitrogen 20 mg/dl (9-20); Calcium 9.1 mg/dl (8.4-10.2); Carbon Dioxide 21 mmol/L (22-30); Chloride 106 mmol/L (98-107); Estimated Creatinine Clearance 71 ml/min; Glucose 112 mg/dl (70-99); Potassium 5.3 mmol/L (3.5-5.1); Sodium 138 mmol/L (135-145); eGFR > 60.00
[2023-10-23 04:58] LABS: Hepatitis C Antibody Negative (Negative)
--- NOTE | 2023-10-23 05:25 | W.PN.CT ---
Today's Communication / Plan
-
-pod #1
-no issues overnight
-drips: Insulin. Levo is off at [address]
-CT output: 2 meds 130/210, L pleur 55/90 in 12/24 hrs
-will need to start Norvasc for radial graft if BP allows
-deline
-d/c Hunter
-d/c inslulin
-encourage IS, OOB
Assessment / Plan
-
- mv-CAD - s/p CABG x4 (In situ LUO to LAD, Ao to RSVG to OM1, Vein sheldon to L radial artery to OM2, Ao to RSVG to RPDA) on 10/22/[address] Powell, pod #1
- Intraop OTILIA: LVEF 60% pre and post, no wma
- Significant family history for CAD
- Hypertension
- Hyperlipidemia
- Osteoarthritis
- Nephrolithiasis
- Diverticulosis
- Acute postop blood loss anemia
- Acute postop atelectasis
- Acute postop hypovolemia with subsequent hypervolemia
- Suspected acute postop pericarditis/+ rub
Discussed patient care with: Nursing and Care Team
Subjective
Procedure
- s/p CABG x4 (In situ LUO to LAD, Ao to RSVG to OM1, Vein sheldon to L radial artery to OM2, Ao to RSVG to RPDA) on 10/22/[address] Powell
-
Date of Service: October 23, 2023
Objective Data
-
PT 16.9 Sec (11.4-14.6) H 10/22/23 12:44
INR 1.36 10/22/23 12:44
APTT 30.0 Sec (23.4-35.0) 10/22/23 12:44
Vital Signs
Vital Signs
Temp Pulse Resp BP Pulse Ox
99.4 F 78 16 98/76 97
10/23/23 00:30 10/23/23 00:30 10/23/23 00:30 10/23/23 00:30 10/23/23 00:[address]
CT Intake/Output/Weight
10/22/23 10/22/23 10/23/23
06:59 18:59 06:59
Intake Total 563.3 / 1571.3 1008.0 / 1571.3
Output Total 465 / 1000 535 / 1000
Balance 98.3 / 571.3 473.0 / 571.3
SaO2: 97
Physical Exam
-
General: Awake and AOx3
Cardiovascular: Regular rate & rhythm and No Rub
Respiratory: Decreased Breath Sounds
Sternum: Stable
Incision: Clean, Dry and Dressing Intact
Extremities: No Edema (2+ DP b/l)
Abdomen: soft, nontender, nondistended, +decreased bowel sounds
Data Reviewed
-
Lab Results: Results Reviewed
Medications: Active Meds Reviewed
Chest X-Ray: Report Reviewed and Image Reviewed
ECG: Report Reviewed and Image Reviewed
[2023-10-23 05:35] LABS: Glucose - Point of Care 77 mg/dl (70-99)
[2023-10-23 05:42] LABS: B.E. -1.7 mmol/L; HCO3 23.7 mmol/L (21-28); Ionized Calcium 1.22 mMOL/L (1.15-1.33); O2 Saturation % 98.9 % (94-98); PCO2 42 mmHg (35-48); PO2 90 mmHg (83-108); Potassium 4.7 mMOL/L (3.5-5.1); pH 7.36 (7.35-7.45)
[2023-10-23] MEDS: TYLENOL 1000 MG PO ×3 (06:17→22:36)
[2023-10-23] MEDS: ROXICODONE 5 MG PO (06:18)
[2023-10-23 06:25] LABS: Glucose - Point of Care 93 mg/dl (70-99)
--- NOTE | 2023-10-23 07:00 | PTCARENOTE ---
Bedside walking rounds report received. Patient seen on rounds oob in chair and tolerating well on 2l nasal canula: no longer light headed or dizzy. Chest tubes x 3 (left pl and 2 meds) without dumping or significant outputs. NSRon mobitor.
Epicardial v wire for backup: see flow record for settings. Plan: IV lasix for diuresis and dc left pleural chest tube this am. See flow record for remaining assessments
--- NOTE | 2023-10-23 07:00 | PTCARENOTE ---
Patient A+A+Ox3. No neurological deficits noted. Patient given CHG bath and linens changed. Chest tube dressing changed. AM labs + Arterial blood gas collected and sent. Patient de-lined. [place] catheter, right arterial line and Hunter catheter
removed without difficulty. Due to void at 12pm. Patient assisted OOB to chair with assist x2. Standing scale weight 91.3 kg. Patient in chair - Patient stated, 'I am going to pass out.' Patient closed his eyes. Heart rate 40-50's. Blood
pressure 80/55 (64). Increased VVI rate to 70 and briefly paced patient. Legs elevated. Patient opened eyes. Patient A+A+Ox3. No neurological deficits noted. No diaphoresis noted. Vital signs stable. No c/o nausea. No vomiting. Patient
resting in chair. Assessment/Interventions as documented.
[2023-10-23 07:01] LABS: Glucose - Point of Care 102 mg/dl (70-99)
--- NOTE | 2023-10-23 07:25 | W.PN.ANS.POP ---
Anesthesia Post Operative
- Anesthesia Post Op Note
Vital Signs Stable-See Nursing Note: Yes
Airway Patent: Yes
Adequate Pain Control: No (Ongoing current pain medication regimen)
Change in Mental Status: No
Current Postoperative Nausea & Vomiting: No
Anesthesia Complications: No
General Anesthetic Recall: No
Unplanned Admission: No
Post Op Hydration Adequate: Yes
--- NOTE | 2023-10-23 07:37 | W.PN.CARDCBS ---
Addendum entered and electronically signed by Britton Duran MD 10/23/23 10:19:
Attending addendum: Patient seen and examined. PROOF OPERATOR note reviewed and findings confirmed by me. Post op CABG
Bypass grafts: LUO-LAD, SVG-OM1, Radial-OM2 from proximal sheldon of SVG-OM1, SVG-PDA
GEN: AAO x 3. Sitting in reclining chair. Complaining of sternal incisional discomfort and feeling very weak and tired
HEENT: NC/AT, sclera are anicteric
LUNGS: Clear in the anterior and lateral lung field
CV: Regular rate and rhythm. Normal S1/S2. Murmur: None, rub: None
Chest: Chest tubes in place. Sternal incision well approximated
ABD : Soft, nontender
EXT: No CCE
NEURO: No focal neurologic deficits
RECOMMENDATIONS
-Off pressors
-ECG looking reasonable.
-Encouraged incentive spirometer
-Hemodynamically stable will follow
Original Note:
Today's Communication / Plan
-
-remains in sinus rhythm
-pain control
-start Metoprolol/Amlodipine
-cont supportive care
Impression / Plan
-
PCP: Jose A Haile MD
Primary ethical hacker: Margarito Orozco DO
Impression:
multivessel coronary artery disease status post CABG x 4 (in situ LUO to LAD, aorto to R SVG to OM1, vein sheldon to left radial artery to OM 2, aorto to R SVG to RPDA) on 10/22/23, POD 1
chest pain
Hyperlipidemia
inguinal hernia repair, laparoscopic 01/01
Insomnia
Cardiovascular studies:
Exercise MIBI stress test 09/24/2023: 9 minutes, 10 METS, inferior and inferior septal ischemia, no scar
Cardiac catheterization 09/25/2023: Left main: normal; LAD: 50 to 60% mid spanning origin of large D1; circumflex: 60% proximal, spanning origin of OM1, 90% distal spanning origin of OM 2 and 3; RCA occluded in midportion distal vessel fills via
collaterals, EF 60%
Echocardiogram: EF 60 to 65%, normal chamber size and wall thickness, structurally normal valves
EK10/22/23: SB 51, no ischemic changes
Lipid profile 09/17/23: LDL 139, HDL 52, TG166, Tchol 221 (off meds)
HgbA1c 09/17/23 5.9
Plan:
-mulitivessel CAD s/p CABG x 4 POD 1, no blood products intraoperatively
-weaned off vent 10/22/23, on O2 NC, sats 96-98%
-off inotropes as of 3 am 10/23/23, BPs 101/74
-start Amlodipine today, off Cardene gtt s/p radial graft
-telemetry personally reviewed: NSR/SB
-EKG 10/23/23: normal sinus rhythm w/ early repolarization
-pain mgmt, + rub, possible post op pericarditis symptoms
-high intensity statin, LDL 139 10/02 (off meds)
-eventual cardiac rehab
Progress Note - Electronic Organ Technician
Subjective
Date of Service: October 23, 2023
OOB in chair
c/o chest soreness radiating from distal sternal incision to L shoulder, worse with deep breath
off inotropes
on insulin
Objective
Labs:
10/23/23 03:26
10/23/23 03:26
Labs
Hgb 12.3 g/dL (13.0-18.0) L 10/23/23 03:26
Hct 34.3 % (39.0-52.0) L 10/23/23 03:26
Plt Count 261 10^3/uL (130-400) 10/23/23 03:26
PT 16.9 Sec (11.4-14.6) H 10/22/23 12:44
INR 1.36 10/22/23 12:44
APTT 30.0 Sec (23.4-35.0) 10/22/23 12:44
Sodium 138 mmol/L (135-145) 10/23/23 03:26
Potassium 5.3 mmol/L (3.5-5.1) H 10/23/23 03:26
BUN 20 mg/dl (9-20) 10/23/23 03:26
Creatinine 1.1 mg/dL (0.7-1.3) 10/23/23 03:26
Glucose 112 mg/dl (70-99) H 10/23/23 03:26
Vital Signs and I&O:
Vital Signs
Temp Pulse Resp BP Pulse Ox
99.6 F 82 16 101/74 98
10/23/23 04:00 10/23/23 06:00 10/23/23 04:00 10/23/23 05:52 10/23/23 06:00
Vital Signs
Temp Pulse Resp BP Pulse Ox
99.6 F 82 16 101/74 98
10/23/23 04:00 10/23/23 06:00 10/23/23 04:00 10/23/23 05:52 10/23/23 06:00
Intake & Output
10/21/23 10/22/23 10/23/23 10/24/23
06:59 06:59 06:59 06:59
Intake Total 1786.1 / 1786.1
Output Total 1250 / 1250
Balance 536.1 / 536.1
Physical Exam
Physical Exam
GEN: No distress, awake, Ox3
HEENT: supple, anicteric, mmm
LUNGS: CTA, no wheezes/rales
CV: Reg, S1/S2, + rub,
ABD: soft, BS+, NT/ND
EXT: No edema, LEs cool, 1+ B/L DP pulse
NEURO: Gross non-focal
SKIN: sternal incision well approximated, sl erythematous superior edge of incision
[2023-10-23] MEDS: LASIX 40 MG IV (07:58)
[2023-10-23] MEDS: VITAMIN C 500 MG PO (07:59)
[2023-10-23] MEDS: LOW STRENGTH ASPIRIN 81 MG PO (07:59)
[2023-10-23] MEDS: DILAUDID 0.5 MG IV (07:59)
[2023-10-23] MEDS: PROTONIX 40 MG PO (08:00)
[2023-10-23] MEDS: MAGNESIUM OXIDE 500 MG PO ×2 (08:00→20:26)
[2023-10-23] MEDS: FEOSOL 325 MG PO (08:00)
[2023-10-23] MEDS: NEURONTIN 100 MG PO ×3 (08:00→22:35)
[2023-10-23] MEDS: PLAVIX 75 MG PO (08:00)
[2023-10-23] MEDS: SENOKOT-S 1 TABLET PO ×2 (08:00→20:27)
[2023-10-23] MEDS: LOPRESSOR 12.5 MG PO ×2 (08:00→20:27)
[2023-10-23] MEDS: BACTROBAN 2% OINTMENT 1 APPLIC NASAL ×2 (08:01→20:26)
[2023-10-23] MEDS: LIDOCAINE 4% PATCH 1 PATCH TOPICAL (08:01)
[2023-10-23 08:28] LABS: Glucose - Point of Care 112 mg/dl (70-99)
--- NOTE | 2023-10-23 09:24 | W.PN.INTV ---
Today's Communication / Plan
Recommendations
Up OOB as tolerated
Pain control
Cardiac rehab consult
Wean down supplemental O2 to maintain SpO2 >90-94%
Plans to remove from insulin drip this afternoon, then continue with SQ insulin supplementation to keep BG goal at 140�180
Removal of mediastinal chest tubes per CT surgery team
Patient will be removed from insulin drip this afternoon and then downgraded to CVICU�telemetry status. Credit Clerk/Pulmonary service will now sign off. Please reconsult if there are any additional questions/concerns, or if patient's respiratory
status deteriorates.
Assessment
-
Assessment: 58-year-old male with a past medical history of multivessel CAD, hypertension, hyperlipidemia, insomnia, seasonal allergic rhinitis and nephrolithiasis who presents with elective CABG. Patient known to cardiothoracic surgery with last
visit on 10/06/[address] Powell. Patient has multivessel CAD with chest pain, back pain and left jaw pain radiating to neck for the last 8-10 months. His chest pain has progressed. 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 He had a left heart
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 Surgical revascularization was discussed including its risks and benefits, and on 10/22/2023 he underwent CABG x 4. There were no immediate complications and he
was transferred to the CVICU postoperatively for further care; Credit Clerk services consulted for additional management/recommendations.
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
Impression:
#Multivessel CAD with exertional angina s/p CABG x 4 (POD #1)
#Anemia
#Insomnia
#History of hypertension
#History of hyperlipidemia
#Seasonal allergic rhinitis
#Right upper lobe 1 cm groundglass opacity
Plan:
Patient successfully extubated on 10/22/2023, and is currently on 1 L/min nasal cannula saturating 93%
prn nebulized bronchodilators
Aspiration precautions
Removal of R-IJ cordis per CT surgery team
Maintain MAP>65
Replete electrolytes with K>4, Mg>2
Monitor chest tube output (mediastinal x 2)
Monitor hemoglobin
Monitor platelet count and coags
Transfuse blood products as needed to maintain Hb>7g/dL, plt>50k (given post-operative status)
CT surgery managing chest tubes
Monitor blood sugar to maintain euglycemia with goal BG 140-180
Insulin drip per protocol --> plans to stop drip this afternoon, then continue insulin SQ to keep BG at goal as above
DVT prophylaxis
Early nutrition
Early mobilization
On CT chest from 10/14/2023 he has a 1 cm groundglass opacity in the right upper lobe. I will arrange for outpatient office follow-up to discuss obtaining an interval CT chest in about 3 to 6 months.
Patient will be removed from insulin drip this afternoon and then downgraded to CVICU�telemetry status. Credit Clerk/Pulmonary service will now sign off. Thank you for allowing us to be involved in the care of this patient. Please reconsult if
there are any additional questions/concerns, or if patient's respiratory status deteriorates.
Data:
CXR 10/22/2023: Support apparatus in position including endotracheal tube with tip in trachea above the arin. No pneumothorax.
CXR 10/23/2023: Stable trace left pleural effusion with associated atelectasis.
CT Chest without contrast 10/14/2023:
1. Moderate coronary arterial calcification, consistent with patient's history of coronary artery disease.
2. 1 cm groundglass opacity within the right upper lobe. As per Fleischner Society criteria, follow-up chest CT is suggested in 6-12 months.
Total time spent today was 75 minutes for this encounter. Time includes reviewing laboratory test/imaging results, reviewing pertinent medical records, obtaining and reviewing medical history, performing an appropriate exam, ordering medications,
tests and procedures. Time also includes documentation of this encounter, coordinating patient care and communicating with other healthcare professionals. Total time does not include separately billed tests performed on this date of service.
Subjective Dataa
Subjective Data
Date of Service:
Date of Service: October 23, 2023
Chief Complaint: Credit Clerk Follow Up and Pulmonary Follow Up
Subjective:
Patient seen and evaluated today at bedside. Heart rate 85, saturating 93% on 1 L/min nasal cannula. Mediastinal chest tubes x [address]. Currently on insulin drip at 1.2 units/hr. R�IJ cordis in place. Patient has some mild postoperative chest
pain but otherwise denies [place], SOB, abdominal pain, nausea, vomiting, fevers or chills.
Review of Systems
General: Other (Negative unless mentioned above)
Objective Data
Data Reviewed
Vital Signs / I&O / Oxygen:
Vital Signs
Temp Pulse Resp BP Pulse Ox
97.9 F 95 20 119/72 98
10/23/23 07:56 10/23/23 07:56 10/23/23 07:56 10/23/23 07:56 10/23/23 07:56
Intake and Output
10/22/23 10/23/23 10/24/23
06:59 06:59 06:59
Intake Total 1796.5 / 1796.5 145.7 / 145.7
Output Total 1330 / 1330 55 / 55
Balance 466.5 / 466.5 90.7 / 90.7
SaO2 [CPAP] 100
SaO2 [SIMV] 100
SaO2 98
Nasal Cannula flow liters per 2
minute
Physical Exam
General: Respiratory Distress (negative), Comfortable, Chills (negative) and Sweats (negative)
HEENT: Normocephalic, Anicteric and Other (R-IJ cordis in place)
Cardiovascular: S1-S2 and Peripheral Edema (negative)
Respiratory: Wheeze (negative), Crackles (Bibasilar), Rhonchi (negative), Non-Labored Respirations and Chest Tube (Mediastinal chest tubes x 2)
GI: Soft, Non Distended, Non Tender and Normal Bowel Sounds
Neurology: AO x 3 and Tremors (negative)
Skin: Warm, Dry and Jaundice (negative)
Labs/Micro/Reports
Lab Data
10/23/23 03:26
10/23/23 03:26
Laboratory Results
10/22/23 10/22/23 10/22/23
12:44 16:46 20:09
PT 16.9 H
INR 1.36
APTT 30.0
pH 7.43 7.33 L 7.36
pCO2 36 44 39
pO2 189 H 163 H 145 H
HCO3 23.9 23.2 22.0
O2 Delivery Level vent
10/23/23
05:29
PT
INR
APTT
pH 7.36
pCO2 42
pO2 90
HCO3 23.7
O2 Delivery Level
[2023-10-23 09:36] LABS: Glucose - Point of Care 121 mg/dl (70-99)
--- NOTE | 2023-10-23 10:30 | PTCARENOTE ---
No acute changes. Assisted back to bed. Left pleural chest tube dc as per order. NSR.
[2023-10-23] MEDS: COLCHICINE 0.3 MG PO (10:42)
[2023-10-23] MEDS: TORADOL 15 MG IV ×3 (10:43→22:37)
[2023-10-23] MEDS: NSS IV (11:52)
--- NOTE | 2023-10-23 12:36 | CM ---
Reviewed chart. Met with and Mrs. Hartman to review discharge plans. He states he is feeling okay. He states he sat in the chair for a little while. He states he is staying in an RV on his property while his house is getting renovated. He
states he has two steps to get to his bedroom/full bathroom. Prior to admission he was independent with ambulation and adls. He does not have any DME in the home. He has a prescription plan and uses [facility]. His spouse states she will be
home the first week ti assist in his care if needed. His son will also be around if needed. We reviewed a home visit by the Cardiothoracic Transitional Care Nurse. He is agreeable to a home visit. Medical work-up in progress. The discharge plan
is to return home with his family and a home visit by the Cardiothoracic Transitional Care Nurse when medically stable.
--- NOTE | 2023-10-23 13:00 | PTCARENOTE ---
Assisted patient back oob to chair. Insulin gtt dc. Room air.
[2023-10-23] MEDS: FERRLECIT 110 MG IV (15:00)
[2023-10-23] MEDS: NORVASC 2.5 MG PO (15:03)
[2023-10-23] MEDS: PACERONE 200 MG PO ×3 (15:03→22:36)
[2023-10-23 15:15] LABS: Glucose - Point of Care 132 mg/dl (70-99)
[2023-10-23 15:15] LABS: Glucose - Point of Care 111 mg/dl (70-99)
[2023-10-23] MEDS: CRESTOR 20 MG PO (17:52)
--- NOTE | 2023-10-23 18:04 | PTCARENOTE ---
Assisted patient back to bed. No acute changed. Room air.
[2023-10-23] MEDS: CALCIUM CHLORIDE 10% SYRINGE 60 MG IV (20:26)
[2023-10-23] MEDS: SODIUM BICARBONATE 50 MEQ IV (20:27)
--- NOTE | 2023-10-23 21:00 | PTCARENOTE ---
Patient received resting in bed watching television. Patient A+A+Ox3. No neurological deficits noted. No s/s of respiratory distress. No c/o SOB. Mediastinal CT x2 - 10-20 ml red drainage - No air leak, tidaling or crepitus noted. Chest tube
dressing changed. Sinus Rhythm. Heart rate 80's. VVI Rate 40, Output 6, Sensitivity 2.0. Normoactive bowel sounds. No BM. No c/o nausea. No vomiting. Voiding. Right I.J. Cordis intact. Sternal incision intact - Surgical adhesive. Right
groin puncture site intact. Right lower leg incision intact. Left radial arterial graft site - Incisions with surgical adhesive - Open to air - Positive Ulnar pulse - Positive circulation, sensation and mobility LUE - No c/o numbness or tingling -
Edema. Patient with no c/o back or flank pain. Patient administered Calcium chloride 1,000mg/50ml IV over 1hr and Sodium Bicarbonate 50 mEq IV per PA orders. Assessment as documented.
[2023-10-24] VITALS (20 sets, daily range): BP systolic 82–120; BP diastolic 61–81; PULSE 83–87; O2SAT 96–100; BMI 29.9
--- NOTE | 2023-10-24 | PTCARENOTE ---
Patient given second dose of Amiodarone 200 mg PO per PA order. Patient now sleeping without difficulty. No further changes from previous assessment.
[2023-10-24] MEDS: TORADOL 15 MG IV (04:29)
[2023-10-24] MEDS: NSS 500 IV (04:30)
--- NOTE | 2023-10-24 04:34 | W.PN.CT ---
Today's Communication / Plan
-
Plan:
-No major issues overnight. Hemodynamically and neurologically intact
-Postop acute pericarditis, on Toradol and Colchicine
-Noted to be tachycardic postop, unable to increase Lopressor d/t soft BP, will increase PO Amiodarone to 400 TID
-Cont. current meds (ASA, Plavix, Crestor, Amiodarone, Lopressor, Colchicine, Toradol; Norvasc for redial graft)
-Consider d/c of remaining chest tubes: 2meds 100/270
-D/C (pull) temporary v-wires
-Maintain cordis another day
-Wean off O2
-Encourage use of IS
-OOB into chair/Ambulate
-Home in 1-2 days
Assessment / Plan
-
- mv-CAD - s/p CABG x4 (In situ LUO to LAD, Ao to RSVG to OM1, Vein sheldon to L radial artery to OM2, Ao to RSVG to RPDA) on 10/22/[address] Powell, pod #2
- Intraop OTILIA: LVEF 60% pre and post, no wma
- Significant family history for CAD
- Hypertension
- Hyperlipidemia
- Osteoarthritis
- Nephrolithiasis
- Diverticulosis
- Acute postop blood loss anemia
- Acute postop atelectasis
- Acute postop hypovolemia with subsequent hypervolemia
- Suspected acute postop pericarditis/+ rub
- Acute postop bradycardia on Cardizem gtt
- Acute postop tachycardia
Discussed patient care with: Cardiology, Nursing, Respiratory Therapy, Pharmacy and Care Team
Subjective
Procedure
- s/p CABG x4 (In situ LUO to LAD, Ao to RSVG to OM1, Vein sheldon to L radial artery to OM2, Ao to RSVG to RPDA) on 10/22/[address] Powell
-
Date of Service: October 24, 2023
Pt c/o incisional pain, otherwise feels well
Objective Data
-
PT 16.9 Sec (11.4-14.6) H 10/22/23 12:44
INR 1.36 10/22/23 12:44
APTT 30.0 Sec (23.4-35.0) 10/22/23 12:44
Vital Signs
Vital Signs
Temp Pulse Resp BP Pulse Ox
98.4 F 80 16 98/65 98
10/23/23 22:35 10/24/23 04:21 10/23/23 22:35 10/24/23 04:21 10/24/23 04:21
CT Intake/Output/Weight
10/23/23 10/23/23 10/24/23
06:59 18:59 06:59
Intake Total 1233.2 / 1796.5 1010.9 / 1400.9 390 / 1400.9
Output Total 865 / 1330 1085 / 1335 250 / 1335
Balance 368.2 / 466.5 -74.1 / 65.9 140 / 65.9
SaO2: 98 (2L )
Physical Exam
-
General: Awake, Oriented and AOx3
Cardiovascular: Regular rate & rhythm, No Murmurs, No Rub and No Gallop
Respiratory: Decreased Breath Sounds (at bases, otherwise clear)
Sternum: Stable
Incision: Clean, Dry, Intact and Dressing Intact
Extremities: No Edema
Data Reviewed
-
Lab Results: Results Reviewed
Medications: Active Meds Reviewed
Chest X-Ray: Report Reviewed and Image Reviewed
ECG: Report Reviewed and Image Reviewed
[2023-10-24 04:58] LABS: Hematocrit 29.8 % (39.0-52.0); Hemoglobin 10.2 g/dL (13.0-18.0); Mean Corp Hgb Conc. 34.2 g/dL (33.0-37.0); Mean Corpuscular Hgb 29.4 pg (27.0-31.0); Mean Corpuscular Volume 85.9 fL (80.0-94.0); Mean Platelet Volume 10.7 fL (7.4-10.4); Platelet Count 190 10^3/uL (130-400); Red Blood Cell Count 3.47 10^6/uL (4.70-6.10); Red Cell Dist. Width 12.5 % (11.5-14.5); White Blood Cell Count 13.3 10^3/uL (4.8-10.8)
--- NOTE | 2023-10-24 05:00 | PTCARENOTE ---
Patient A+A+Ox3. No neurological deficits noted. AM lab work collected and sent. Patient back to sleep. OOB to chair in AM. Assessment/Interventions as documented.
[2023-10-24] MEDS: TYLENOL 1000 MG PO ×3 (05:04→22:26)
[2023-10-24] MEDS: ROXICODONE 5 MG PO ×5 (05:04→22:26)
[2023-10-24 05:14] LABS: Blood Urea Nitrogen 37 mg/dl (9-20); Calcium 8.7 mg/dl (8.4-10.2); Carbon Dioxide 30 mmol/L (22-30); Chloride 100 mmol/L (98-107); Estimated Creatinine Clearance 65 ml/min; Glucose 109 mg/dl (70-99); Magnesium 2.1 mg/dl (1.6-2.3); Potassium 4.7 mmol/L (3.5-5.1); Sodium 136 mmol/L (135-145); eGFR > 60.00
--- NOTE | 2023-10-24 08:02 | W.PN.CARDCBS ---
Today's Communication / Plan
-
Cont post op care
Impression / Plan
-
.
PCP: Jose A Haile MD
Primary loading dock hand: Margarito Orozco DO
Impression:
multivessel coronary artery disease status post CABG x 4 (in situ LUO to LAD, aorto to R SVG to OM1, vein sheldon to left radial artery to OM 2, aorto to R SVG to RPDA) on 10/22/23, POD 1
Hyperlipidemia
inguinal hernia repair, laparoscopic 01/01
Insomnia
Cardiovascular studies:
Exercise MIBI stress test 09/24/2023: 9 minutes, 10 METS, inferior and inferior septal ischemia, no scar
Cardiac catheterization 09/25/2023: Left main: normal; LAD: 50 to 60% mid spanning origin of large D1; circumflex: 60% proximal, spanning origin of OM1, 90% distal spanning origin of OM 2 and 3; RCA occluded in midportion distal vessel fills via
collaterals, EF 60%
Echocardiogram: EF 60 to 65%, normal chamber size and wall thickness, structurally normal valves
EK10/22/23: SB 51, no ischemic changes
Lipid profile 09/17/23: LDL 139, HDL 52, TG166, Tchol 221 (off meds)
HgbA1c 09/17/23 5.9
Plan:
s/p mulitivessel CAD s/p CABG x 4, no blood products intraoperatively
Cont CT surgical care.
Bp stable off pressors
Norvasc for radial graft
Remains sinus.
Cont statin, LDL was 139.
Eventual cardiac rehab
Discussed with nursing.
Progress Note - Hair Salon Manager
Subjective
Date of Service: October 24, 2023
Pt seen and examined. No complaints. No chest pain or shortness of breath.
Objective
Labs:
10/24/23 04:41
10/24/23 04:41
Labs
Hgb 10.2 g/dL (13.0-18.0) L 10/24/23 04:41
Hct 29.8 % (39.0-52.0) L 10/24/23 04:41
Plt Count 190 10^3/uL (130-400) D 10/24/23 04:41
PT 16.9 Sec (11.4-14.6) H 10/22/23 12:44
INR 1.36 10/22/23 12:44
APTT 30.0 Sec (23.4-35.0) 10/22/23 12:44
Sodium 136 mmol/L (135-145) 10/24/23 04:41
Potassium 4.7 mmol/L (3.5-5.1) 10/24/23 04:41
BUN 37 mg/dl (9-20) H 10/24/23 04:41
Creatinine 1.2 mg/dL (0.7-1.3) 10/24/23 04:41
Glucose 109 mg/dl (70-99) H 10/24/23 04:41
Vital Signs and I&O:
Vital Signs
Temp Pulse Resp BP Pulse Ox
98.2 F 80 16 98/65 98
10/24/23 04:20 10/24/23 04:21 10/24/23 04:20 10/24/23 04:21 10/24/23 05:22
Vital Signs
Temp Pulse Resp BP Pulse Ox
98.2 F 80 16 98/65 98
10/24/23 04:20 10/24/23 04:21 10/24/23 04:20 10/24/23 04:21 10/24/23 05:22
Intake & Output
10/22/23 10/23/23 10/24/23 10/25/23
06:59 06:59 06:59 06:59
Intake Total 1796.5 / 1796.5 1430.9 / 1430.9
Output Total 1330 / 1330 1385 / 1385
Balance 466.5 / 466.5 45.9 / 45.9
Physical Exam
Physical Exam
General: No acute distress, AAOX3
Neck: Negative JVD
Heart: Regular, Negative S3 positive S1/S2, Negative S4, No murmur
Lungs: CTA b/l, negative wheezes/rales/rhonchi
Abd: Positive BS, NT/ND, neg rebound/rigidity/guarding
Ext: Negative cyanosis/clubbing/edema
Neuro: nonfocal
[2023-10-24] MEDS: LOPRESSOR 12.5 MG PO ×2 (08:42→20:30)
[2023-10-24] MEDS: BACTROBAN 2% OINTMENT 1 APPLIC NASAL ×2 (08:42→19:46)
[2023-10-24] MEDS: SENOKOT-S 1 TABLET PO ×2 (08:43→19:46)
[2023-10-24] MEDS: PLAVIX 75 MG PO (08:44)
[2023-10-24] MEDS: NORVASC 2.5 MG PO (08:44)
[2023-10-24] MEDS: LOW STRENGTH ASPIRIN 81 MG PO (08:44)
[2023-10-24] MEDS: FEOSOL 325 MG PO (08:44)
[2023-10-24] MEDS: PROTONIX 40 MG PO (08:44)
[2023-10-24] MEDS: MAGNESIUM OXIDE 500 MG PO ×2 (08:44→19:46)
[2023-10-24] MEDS: NEURONTIN 100 MG PO ×3 (08:45→22:26)
[2023-10-24] MEDS: VITAMIN C 500 MG PO (08:45)
[2023-10-24] MEDS: COLCHICINE 0.3 MG PO (08:45)
[2023-10-24] MEDS: PACERONE 400 MG PO ×3 (08:46→22:26)
--- NOTE | 2023-10-24 09:00 | PTCARENOTE ---
Patient received from security shift supervisor resting oob in chair, AAO x 3, c/o moderate sternal discomfort, medicated for such (see MAR). NSR via cm, SaO2 @ 97% on RA. RIJ Cordis w/kvo infusing. Epicardial V-wire to pulse generator, no spikes noted.
Mediastinal chest tubes x 2, Y-connected to one pleurevac, no leak or crepitus noted. All procedural sites stable. Patient updated to plan of care for the day, in agreement. See work list for full assessment and interventions performed.
[2023-10-24] MEDS: LIDOCAINE 4% PATCH TOPICAL (09:05)
--- NOTE | 2023-10-24 11:48 | PTCARENOTE ---
Epicardial temp pacing wire d/c'd by MARYBETH Everett. Bedrest maintained x 1 hour, VS obtained per protocol. Then, chest tubes d/c'd as ordered. Patient tolerated well. VS obtained, resting comfortably, at bedside.
[2023-10-24] MEDS: FERRLECIT 110 MG IV (13:12)
--- NOTE | 2023-10-24 16:07 | PTCARENOTE ---
VS obtained, assessment stable. Patient denies pain, resting comfortably.
[2023-10-24] MEDS: CRESTOR 20 MG PO (18:14)
--- NOTE | 2023-10-24 20:00 | PTCARENOTE ---
assumed care of pt from previous RN. pt A&Ox4, resting in chair at time of assessment. SR on tele-monitor. POX 96% on RA. abd s/n, +BS. voiding clear, yellow urine. all surgical sites stable. R IJ cordis w/ KVO. PIV intact. see worklist for complete
nursing assessment, interventions, VS, and I&Os.
[2023-10-24] MEDS: CALCIUM CHLORIDE 10% SYRINGE 60 MG IV (20:30)
[2023-10-25] VITALS (8 sets, daily range): BP systolic 98–114; BP diastolic 63–87; BMI 30.1
--- NOTE | 2023-10-25 | PTCARENOTE ---
assessment remains unchanged. VSS.
[2023-10-25] MEDS: ROXICODONE 5 MG PO ×4 (02:32→20:05)
[2023-10-25 03:03] LABS: Hematocrit 29.1 % (39.0-52.0); Hemoglobin 10.1 g/dL (13.0-18.0); Mean Corp Hgb Conc. 34.7 g/dL (33.0-37.0); Mean Corpuscular Hgb 30.8 pg (27.0-31.0); Mean Corpuscular Volume 88.7 fL (80.0-94.0); Mean Platelet Volume 11.3 fL (7.4-10.4); Platelet Count 177 10^3/uL (130-400); Red Blood Cell Count 3.28 10^6/uL (4.70-6.10); Red Cell Dist. Width 12.1 % (11.5-14.5); White Blood Cell Count 10.7 10^3/uL (4.8-10.8)
[2023-10-25 03:28] LABS: Blood Urea Nitrogen 30 mg/dl (9-20); Calcium 8.9 mg/dl (8.4-10.2); Carbon Dioxide 29 mmol/L (22-30); Chloride 98 mmol/L (98-107); Estimated Creatinine Clearance 65 ml/min; Glucose 107 mg/dl (70-99); Magnesium 1.9 mg/dl (1.6-2.3); Potassium 4.4 mmol/L (3.5-5.1); Sodium 136 mmol/L (135-145); eGFR > 60.00
--- NOTE | 2023-10-25 04:10 | W.PN.CT ---
Today's Communication / Plan
-
Plan:
-No major issues overnight. Hemodynamically and neurologically intact
-Postop acute pericarditis, on Toradol and Colchicine
-Noted to be tachycardic postop, unable to increase Lopressor d/t soft BP, tolerating increased PO Amiodarone to 400 TID
-Cont. current meds (ASA, Plavix, Crestor, Amiodarone, Lopressor, Colchicine; Norvasc for redial graft)
-D/C cordis
-Encourage use of IS
-OOB into chair/Ambulate
-Home tomorrow (can likely go home today, but wants him to stay another day)
Assessment / Plan
-
- mv-CAD - s/p CABG x4 (In situ LUO to LAD, Ao to RSVG to OM1, Vein sheldon to L radial artery to OM2, Ao to RSVG to RPDA) on 10/22/[address] Powell, pod #3
- Intraop OTILIA: LVEF 60% pre and post, no wma
- Significant family history for CAD
- Hypertension
- Hyperlipidemia
- Osteoarthritis
- Nephrolithiasis
- Diverticulosis
- Acute postop blood loss anemia
- Acute postop atelectasis
- Acute postop hypovolemia with subsequent hypervolemia
- Suspected acute postop pericarditis/+ rub
- Acute postop bradycardia on Cardizem gtt
- Acute postop tachycardia
Discussed patient care with: Cardiology, Nursing, Respiratory Therapy, Pharmacy and Care Team
Subjective
Procedure
- s/p CABG x4 (In situ LUO to LAD, Ao to RSVG to OM1, Vein sheldon to L radial artery to OM2, Ao to RSVG to RPDA) on 10/22/[address] Powell
-
Date of Service: October 25, 2023
Pt c/o mild incisional pain, otherwise feels well
Objective Data
-
Lab Results
10/25/23 02:38
10/25/23 02:38
PT 16.9 Sec (11.4-14.6) H 10/22/23 12:44
INR 1.36 10/22/23 12:44
APTT 30.0 Sec (23.4-35.0) 10/22/23 12:44
Vital Signs
Vital Signs
Temp Pulse Resp BP Pulse Ox
98.0 F 76 14 98/63 95
10/25/23 00:00 10/25/23 03:00 10/25/23 00:00 10/25/23 00:06 10/25/23 00:00
CT Intake/Output/Weight
10/24/23 10/24/23 10/25/23
06:59 18:59 06:59
Intake Total 420 / 1430.9 620 / 740 120 / 740
Output Total 300 / 1385 0 / 0
Balance 120 / 45.9 620 / 740 120 / 740
SaO2: 95 (RA)
Physical Exam
-
General: Awake, Oriented and AOx3
Cardiovascular: Regular rate & rhythm, No Murmurs, Rub (d/t acute pericarditis) and No Gallop
Respiratory: Decreased Breath Sounds (at bases, otherwise clear)
Sternum: Stable
Incision: Clean, Dry, Intact and Dressing Intact
Extremities: No Edema
Data Reviewed
-
Lab Results: Results Reviewed
Medications: Active Meds Reviewed
Chest X-Ray: Report Reviewed and Image Reviewed
ECG: Report Reviewed and Image Reviewed
[2023-10-25] MEDS: TYLENOL 1000 MG PO ×3 (06:04→22:08)
[2023-10-25] MEDS: PROTONIX 40 MG PO (08:01)
[2023-10-25] MEDS: FEOSOL 325 MG PO (08:01)
[2023-10-25] MEDS: NEURONTIN 100 MG PO ×3 (08:01→22:07)
[2023-10-25] MEDS: PACERONE 400 MG PO ×3 (08:01→22:08)
[2023-10-25] MEDS: COLCHICINE 0.3 MG PO (08:02)
[2023-10-25] MEDS: VITAMIN C 500 MG PO (08:02)
[2023-10-25] MEDS: MAGNESIUM OXIDE 500 MG PO ×2 (08:02→20:05)
[2023-10-25] MEDS: PLAVIX 75 MG PO (08:02)
[2023-10-25] MEDS: LOW STRENGTH ASPIRIN 81 MG PO (08:02)
[2023-10-25] MEDS: LOPRESSOR 12.5 MG PO ×2 (08:03→20:04)
[2023-10-25] MEDS: SENOKOT-S 1 TABLET PO ×2 (08:03→20:06)
[2023-10-25] MEDS: NORVASC 2.5 MG PO (08:03)
[2023-10-25] MEDS: BACTROBAN 2% OINTMENT 1 APPLIC NASAL ×2 (08:03→20:05)
--- NOTE | 2023-10-25 08:13 | W.PN.CARDCBS ---
Today's Communication / Plan
-
Cont post op care
Impression / Plan
-
.
PCP: Jose A Haile MD
Primary faculty i on call medical assistant: Margarito Orozco DO
Impression:
multivessel coronary artery disease status post CABG x 4 (in situ LUO to LAD, aorto to R SVG to OM1, vein sheldon to left radial artery to OM 2, aorto to R SVG to RPDA) on 10/22/23, POD 1
Hyperlipidemia
inguinal hernia repair, laparoscopic 01/01
Insomnia
Cardiovascular studies:
Exercise MIBI stress test 09/24/2023: 9 minutes, 10 METS, inferior and inferior septal ischemia, no scar
Cardiac catheterization 09/25/2023: Left main: normal; LAD: 50 to 60% mid spanning origin of large D1; circumflex: 60% proximal, spanning origin of OM1, 90% distal spanning origin of OM 2 and 3; RCA occluded in midportion distal vessel fills via
collaterals, EF 60%
Echocardiogram: EF 60 to 65%, normal chamber size and wall thickness, structurally normal valves
EK10/22/23: SB 51, no ischemic changes
Lipid profile 09/17/23: LDL 139, HDL 52, TG166, Tchol 221 (off meds)
HgbA1c 09/17/23 5.9
Plan:
s/p mulitivessel CAD s/p CABG x 4, no blood products intraoperatively
Cont CT surgical care.
HR and BP stable.
Norvasc for radial graft
Remains sinus.
Cont statin, LDL was 139.
Cardiac rehab as outpt
Likely d/c next 24 hrs
Outpt cardiac followup
Discussed with nursing.
Progress Note - Circulation Assistant
Subjective
Date of Service: October 25, 2023
Pt seen and examined. No complaints. No chest pain or shortness of breath.
Objective
Labs:
10/25/23 02:38
10/25/23 02:38
Labs
Hgb 10.1 g/dL (13.0-18.0) L 10/25/23 02:38
Hct 29.1 % (39.0-52.0) L 10/25/23 02:38
Plt Count 177 10^3/uL (130-400) 10/25/23 02:38
PT 16.9 Sec (11.4-14.6) H 10/22/23 12:44
INR 1.36 10/22/23 12:44
APTT 30.0 Sec (23.4-35.0) 10/22/23 12:44
Sodium 136 mmol/L (135-145) 10/25/23 02:38
Potassium 4.4 mmol/L (3.5-5.1) 10/25/23 02:38
BUN 30 mg/dl (9-20) H 10/25/23 02:38
Creatinine 1.2 mg/dL (0.7-1.3) 10/25/23 02:38
Glucose 107 mg/dl (70-99) H 10/25/23 02:38
Vital Signs and I&O:
Vital Signs
Temp Pulse Resp BP Pulse Ox
98.4 F 82 18 100/70 97
10/25/23 07:42 10/25/23 08:09 10/25/23 07:42 10/25/23 08:03 10/25/23 07:47
Vital Signs
Temp Pulse Resp BP Pulse Ox
98.4 F 82 18 100/70 97
10/25/23 07:42 10/25/23 08:09 10/25/23 07:42 10/25/23 08:03 10/25/23 07:47
Intake & Output
10/23/23 10/24/23 10/25/23 10/26/23
06:59 06:59 06:59 06:59
Intake Total 1796.5 / 1796.5 1430.9 / 1430.9 780 / 780 270 / 270
Output Total 1330 / 1330 1385 / 1385 0 / 0
Balance 466.5 / 466.5 45.9 / 45.9 780 / 780 270 / 270
Physical Exam
Physical Exam
General: No acute distress, AAOX3
Neck: Negative JVD
Heart: Regular, Negative S3 positive S1/S2, Negative S4, No murmur
Lungs: CTA b/l, negative wheezes/rales/rhonchi
Abd: Positive BS, NT/ND, neg rebound/rigidity/guarding
Ext: Negative cyanosis/clubbing/edema
Neuro: nonfocal
[2023-10-25] MEDS: LIDOCAINE 4% PATCH TOPICAL (08:39)
--- NOTE | 2023-10-25 09:00 | PTCARENOTE ---
Patient received from scene shifter resting oob in chair, AAO X 3, c/o moderate incisional discomfort, medicated. NSR via cm, SaO2 @ 97% on RA. RIJ Cordis present, KVO infusing. All procedural sites stable. Patient updated to plan of care for the day,
in agreement. See work list for full assessment and interventions performed.
[2023-10-25] MEDS: NSS IV (11:29)
--- NOTE | 2023-10-25 11:30 | PTCARENOTE ---
Cordis d/c'd as ordered. VS obtained, stable. Patient ambulating unit ad laurita.
[2023-10-25] MEDS: FERRLECIT 110 MG IV (14:21)
--- NOTE | 2023-10-25 16:09 | PTCARENOTE ---
VS obtained, assessment unchanged. at bedside, patient ambulating ad laurita. Shower completed independently.
[2023-10-25] MEDS: CRESTOR 20 MG PO (18:27)
--- NOTE | 2023-10-25 20:30 | PTCARENOTE ---
Received pt at handoff. AOX3. Tele- SR. HR 70-80s. Pt ambulatory in room and hallways w/ steady gait. C/o of moderate sternal incisional discomfort, medicated w/ oxycodone 5mg. See APR. All procedural sites stable. Currently in bed; call daniel w/in
reach.
[2023-10-25] MEDS: FLEXERIL 5 MG PO (22:08)
[2023-10-26 03:52] VITALS: BP 103/69
[2023-10-26 04:09] VITALS: BMI 30.1
[2023-10-26 04:22] LABS: Hematocrit 27.6 % (39.0-52.0); Hemoglobin 9.6 g/dL (13.0-18.0); Mean Corp Hgb Conc. 34.8 g/dL (33.0-37.0); Mean Corpuscular Hgb 30.9 pg (27.0-31.0); Mean Corpuscular Volume 88.7 fL (80.0-94.0); Mean Platelet Volume 10.9 fL (7.4-10.4); Platelet Count 194 10^3/uL (130-400); Red Blood Cell Count 3.11 10^6/uL (4.70-6.10); Red Cell Dist. Width 12.2 % (11.5-14.5); White Blood Cell Count 8.3 10^3/uL (4.8-10.8)
[2023-10-26 04:50] LABS: Blood Urea Nitrogen 21 mg/dl (9-20); Calcium 8.6 mg/dl (8.4-10.2); Carbon Dioxide 30 mmol/L (22-30); Chloride 98 mmol/L (98-107); Estimated Creatinine Clearance 73 ml/min; Glucose 97 mg/dl (70-99); Magnesium 2.1 mg/dl (1.6-2.3); Potassium 4.4 mmol/L (3.5-5.1); Sodium 138 mmol/L (135-145); eGFR > 60.00
--- NOTE | 2023-10-26 05:12 | W.PN.CT ---
Today's Communication / Plan
-
Plan:
-No major issues overnight. Hemodynamically and neurologically intact
-Postop acute pericarditis, on Colchicine (completed 4 doses of Toradol)
-Noted to be tachycardic postop, unable to increase Lopressor d/t soft BP, tolerating increased PO Amiodarone to 400 TID
-Cont. current meds (ASA, Plavix, Crestor, Amiodarone, Lopressor, Colchicine; Norvasc for redial graft)
-F/U 2-view cxr
-Encourage use of IS
-OOB into chair/Ambulate
-Home today
Assessment / Plan
-
- mv-CAD - s/p CABG x4 (In situ LUO to LAD, Ao to RSVG to OM1, Vein sheldon to L radial artery to OM2, Ao to RSVG to RPDA) on 10/22/[address] Powell, pod #4
- Intraop OTILIA: LVEF 60% pre and post, no wma
- Significant family history for CAD
- Hypertension
- Hyperlipidemia
- Osteoarthritis
- Nephrolithiasis
- Diverticulosis
- S/P inguinal herniorrhaphy
- Acute postop blood loss anemia
- Acute postop atelectasis
- Acute postop hypovolemia with subsequent hypervolemia
- Suspected acute postop pericarditis/+ rub
- Acute postop bradycardia on Cardizem gtt
- Acute postop tachycardia
Discussed patient care with: Cardiology, Nursing, Respiratory Therapy, Pharmacy and Care Team
Subjective
Procedure
- s/p CABG x4 (In situ LUO to LAD, Ao to RSVG to OM1, Vein sheldon to L radial artery to OM2, Ao to RSVG to RPDA) on 10/22/[address] Powell
-
Date of Service: October 26, 2023
Pt c/o mild incisional pain, otherwise feels well
Objective Data
-
Lab Results
10/26/23 04:05
10/26/23 04:05
PT 16.9 Sec (11.4-14.6) H 10/22/23 12:44
INR 1.36 10/22/23 12:44
APTT 30.0 Sec (23.4-35.0) 10/22/23 12:44
Vital Signs
Vital Signs
Temp Pulse Resp BP Pulse Ox
97.9 F 70 16 103/69 95
10/26/23 03:52 10/26/23 03:52 10/26/23 03:52 10/26/23 03:52 10/26/23 03:52
CT Intake/Output/Weight
10/25/23 10/25/23 10/26/23
06:59 18:59 06:59
Intake Total 160 / 780 530 / 530
Balance 160 / 780 530 / 530
SaO2: 95 (RA)
Physical Exam
-
General: Awake, Oriented and AOx3
Cardiovascular: Regular rate & rhythm, Rub (acute pericarditis) and No Gallop
Respiratory: Decreased Breath Sounds (at bases, otherwise clear)
Sternum: Stable
Incision: Clean, Dry, Intact and Dressing Intact
Extremities: Other (+trace edema)
Data Reviewed
-
Lab Results: Results Reviewed
Medications: Active Meds Reviewed
Chest X-Ray: Report Reviewed and Image Reviewed
ECG: Report Reviewed and Image Reviewed
[2023-10-26] MEDS: TYLENOL 1000 MG PO ×2 (06:21→14:01)
[2023-10-26 07:56] VITALS: BP 104/76
[2023-10-26] MEDS: BACTROBAN 2% OINTMENT 1 APPLIC NASAL (08:07)
[2023-10-26] MEDS: PACERONE 400 MG PO (08:08)
[2023-10-26] MEDS: MAGNESIUM OXIDE 500 MG PO (08:08)
[2023-10-26] MEDS: NORVASC 2.5 MG PO (08:08)
[2023-10-26] MEDS: PROTONIX 40 MG PO (08:08)
[2023-10-26] MEDS: SENOKOT-S 1 TABLET PO (08:09)
[2023-10-26] MEDS: ROXICODONE 5 MG PO ×2 (08:09→14:02)
[2023-10-26] MEDS: FEOSOL 325 MG PO (08:09)
[2023-10-26] MEDS: LOW STRENGTH ASPIRIN 81 MG PO (08:09)
[2023-10-26] MEDS: NEURONTIN 100 MG PO (08:10)
[2023-10-26] MEDS: COLCHICINE 0.3 MG PO (08:11)
[2023-10-26] MEDS: LOPRESSOR 12.5 MG PO (08:12)
[2023-10-26] MEDS: LIDOCAINE 4% PATCH TOPICAL (08:12)
[2023-10-26] MEDS: VITAMIN C 500 MG PO (08:13)
--- NOTE | 2023-10-26 08:16 | W.PN.CARDCBS ---
Addendum entered and electronically signed by Margarito Orozco DO 10/26/23 10:02:
I saw and examined the patient.
The Rad Tech's note was reviewed and I agree with the note.
Comment:
Plan:
Stop Amiodarone and transition to low dose beta mariah
HR and bp stable
Stable for d/c
outpt cardiac follow up
Discussed with at bedside.
Original Note:
Today's Communication / Plan
-
-stop Amio, change to low dose beta mariah
-ok for discharge today
-outpt cardiac rehab
Impression / Plan
-
.
PCP: Jose A Haile MD
Primary district court judge: Margarito Orozco DO
Impression:
multivessel coronary artery disease status post CABG x 4 (in situ LUO to LAD, aorto to R SVG to OM1, vein sheldon to left radial artery to OM 2, aorto to R SVG to RPDA) on 10/22/23, POD 4
post op acute pericarditis
Hyperlipidemia
inguinal hernia repair, laparoscopic 01/01
Insomnia
Cardiovascular studies:
Exercise MIBI stress test 09/24/2023: 9 minutes, 10 METS, inferior and inferior septal ischemia, no scar
Cardiac catheterization 09/25/2023: Left main: normal; LAD: 50 to 60% mid spanning origin of large D1; circumflex: 60% proximal, spanning origin of OM1, 90% distal spanning origin of OM 2 and 3; RCA occluded in midportion distal vessel fills via
collaterals, EF 60%
Echocardiogram: EF 60 to 65%, normal chamber size and wall thickness, structurally normal valves
EK10/22/23: SB 51, no ischemic changes
Lipid profile 09/17/23: LDL 139, HDL 52, TG166, Tchol 221 (off meds)
HgbA1c 09/17/23 5.9
Plan:
POD #4, s/p mulitivessel CAD s/p CABG x 4, no blood products intraoperatively
Remains in sinus rhythm, no afib noted on telemetry
can stop Amiodarone, start low dose beta mariah
BP stable, low 100s/60-70s.
Norvasc for radial graft
Colchicine for pericarditis
high intensity statin, LDL was 139.
Cardiac rehab as outpt- already has 1st apptmt scheduled
Outpt cardiac followup -scheduled for 4 wks.
Discussed with nursing.
Progress Note - Can Slider
Subjective
Date of Service: October 26, 2023
feels well, continues with generalized chest soreness, improving
no dizziness, palpitations, SOB
Objective
Labs:
10/26/23 04:05
10/26/23 04:05
Labs
Hgb 9.6 g/dL (13.0-18.0) L 10/26/23 04:05
Hct 27.6 % (39.0-52.0) L 10/26/23 04:05
Plt Count 194 10^3/uL (130-400) 10/26/23 04:05
PT 16.9 Sec (11.4-14.6) H 10/22/23 12:44
INR 1.36 10/22/23 12:44
APTT 30.0 Sec (23.4-35.0) 10/22/23 12:44
Sodium 138 mmol/L (135-145) 10/26/23 04:05
Potassium 4.4 mmol/L (3.5-5.1) 10/26/23 04:05
BUN 21 mg/dl (9-20) H 10/26/23 04:05
Creatinine 1.2 mg/dL (0.7-1.3) 10/26/23 04:05
Glucose 97 mg/dl (70-99) 10/26/23 04:05
Vital Signs and I&O:
Vital Signs
Temp Pulse Resp BP Pulse Ox
98.4 F 70 18 103/69 94
10/26/23 08:00 10/26/23 03:52 10/26/23 08:00 10/26/23 03:52 10/26/23 08:00
Vital Signs
Temp Pulse Resp BP Pulse Ox
98.4 F 70 18 103/69 94
10/26/23 08:00 10/26/23 03:52 10/26/23 08:00 10/26/23 03:52 10/26/23 08:00
Intake & Output
10/24/23 10/25/23 10/26/23 10/27/23
06:59 06:59 06:59 06:59
Intake Total 1430.9 / 1430.9 780 / 780 530 / 530
Output Total 1385 / 1385 0 / 0
Balance 45.9 / 45.9 780 / 780 530 / 530
Physical Exam
Physical Exam
GEN: No distress, awake, Ox3
HEENT: supple, anicteric, mmm
LUNGS: CTA, no wheezes/rales
CV: Reg, S1/S2, no rub, no murmur
ABD: soft, BS+, NT/ND
EXT: trace ankle edema
NEURO: Gross non-focal
SKIN: No rash
[2023-10-26] MEDS: PLAVIX 75 MG PO (08:19)
[2023-10-26 08:52] VITALS: BP 111/64
[2023-10-26 09:07] VITALS: BP 115/72
--- NOTE | 2023-10-26 09:43 | CM ---
Reviewed chart. Mr. Hartman was transferred to IVU. Met with MrSanna and Mrs. Hartman to review discharge plans. He states hr is feeling well and maybe able to go home soon. We reviewed a home visit by the Cardiothoracic Transitional Care Nurse.
He is agreeable to a home visit. He ambulated in the hallway today. Prior to admission he resides with his spouse and children in an RV on his property while his house is under renovations. He has two steps to get to his bedroom/full bathroom. He
does not have any DME in the home. He has a prescription plan and uses [facility]. His spouse will be home to assist in his care if needed. Also his son is home schooled and he will be available to assist in his care also if needed. Medical
work-up in progress. The discharge plan is to return home with his spouse and children with a home visit by the Cardiothoracic Transitional Care Nurse when medically stable.
--- NOTE | 2023-10-26 10:11 | PTCARENOTE ---
Received pt at shift change. SR on the monitor, HR in the 70s. Pt complains of 5/10 pain at the sternal incision site, PRN Oxycodone administered as per APR. Pain reassessed as a 2/10 one hour later. Pt expecting d/c today.
[2023-10-26 10:26] VITALS: BP 111/64; BP 115/72; PULSE 72; O2SAT 93; O2SAT 94
--- NOTE | 2023-10-26 10:53 | W.DCSUMMARY ---
Discharge Summary
Discharge Data
Date of Admission: 10/22/23
Date of Discharge: 10/26/23
Total time spent discharging patient (in min): 40
-
Pending Results: No
Hospital Course
Primary care physician:
Dr. Ivan Ennis
Outpatient tire molder:
Dr. Britton Duran
Inpatient consultants:
DCA, Skin Care Instructor
Procedures:
1. Multi Arterial Coronary artery bypass grafting x 4 (In situ LUO to LAD, Ao to RSVG to OM1, Vein sheldon to L radial artery to OM2, Ao to RSVG to RPDA), Endoscopic vein harvesting of the RLE and Endoscopic left radial artery harvest
Primary Diagnosis:
1. Multivessel Coronary Artery Disease
Secondary Diagnoses:
1. Hypertension
2. Hyperlipidemia
3. Acute blood loss anemia
4. Acute post-operative pericarditis
5. Nephrolithiasis
HPI: 58-year-old male electively admitted on 10/22/2023 for CABG due to triple-vessel coronary disease.
Hospital course: Patient was electively admitted on 10/21 for a coronary artery bypass with Dr. Powell. Postoperatively he returned to the CVICU on Levophed, Cardizem, insulin, and Precedex infusions. Cardizem was weaned off and transition to
Cardene infusion for his radial harvest. Precedex was turned off and patient was extubated by a 1740. On 10/22 postoperative day #1 patient's EKG showed acute postoperative pericarditis and was started on colchicine and IV Toradol. He was also
diuresed with 40 mg of IV Lasix. On 10/23 postoperative day #2, patient's pacing wire and chest tubes were pulled. Norvasc was continued but beta-blockers were held due to low blood pressures. On 10/24 postoperative day #3 patient remained stable.
On 10/25 postoperative day #4 beta-blockers were resumed and two-view chest x-ray remained stable. He was deemed stable for discharge and all his prescriptions were sent to his preferred pharmacy.
Home medication changes:
see below
Discharge Plan
-
Patient Disposition: Home (Routine Discharge)
Discharge Diagnosis/Procedures: CABGx4
Condition: Good
Diet: 2 Gram Sodium
Activity: No strenuous activity
Driving Restrictions: Not until seen by your Dr
Bathing Restrictions: OK to Shower
Other Services: Cardiac Rehab
Specialty Instructions: Weigh Daily- Call MD for wt gain/loss 3 lbs overnight/5 lbs in 1 week
Activity Restrictions/Additional Instructions:
ACTIVITY:
-No strenuous activity: no heavy lifting, pushing, pulling anything over 15 pounds for one month
-continue to use stairs as tolerated
DRIVING RESTRICTIONS:
-No driving for one month or until approved by your surgeon
WOUND CARE:
-Shower daily. Use soap & water.
-No lotions, creams or powders on incision area.
DIET:
-continue a low fat/low cholesterol diet.
-IF you are diabetic, continue carb controlled diet.
CARDIAC REHAB:
-Please make appointment to start in 5-6 weeks with your local hospital program. (See Cardiac Rehabilitation Discharge Booklet).
SPECIALTY INSTRUCTIONS:
-Weigh yourself daily. Call your physician for any weight gain/loss of 3 lbs overnight or 5 lbs in one week.
-REPORT any clicking noise or uneven appearance of your sternum to your surgeon immediately.
-If you smoke, you are instructed to quit. The [place] smoking hotline phone number is [phone]
Referrals:
CT Transitional Care Nurse [Outside] - in one to two days
(
The Cardiothoracic Transitional Care Nurse will call you to set up a visit in 1-2 days.)
[facility] Cardiac Rehab [Outside] - 11/27/23 2:00 pm
(Cardiac Rehab Orientation appointment and� First Exercise appointment is on Thursday11/27/23 2pm.
The Cardiac Rehab gym [facility]
Janel Gold PA-C [Specified Professional Personl] - 12/02/23 10:40 am (Your appointment on 11/18/23 has been cancelled. )
Ritchie Crain MD [Active] - in one to two months (right upper lobe GGO - need outpatient follow up with repeat CT chest)
Jose A Haile MD [Family Provider] - in four to six weeks (Please make an appointment in four to six weeks. )
Alfredo Powell MD [Active] - 11/18/23 1:45 pm
Additional Discharge Medication Instructions: You will be on colchicine for 30 days for post-operative pericarditis
Please note that your dose of lopressor has change from once a day to twice a day
Do not restart you zolpidem until directed by a medical professional
Prescriptions:
New
cyclobenzaprine 10 mg Tablet
5 mg PO Q8HPRN PRN (Reason: muscle spasm) Qty: 30 0RF
acetaminophen 325 mg Tablet
650 mg PO Q4HPRN PRN (Reason: mild pain,headache,temp >101F ) Qty: 0 0RF
amlodipine 2.5 mg Tablet
2.5 mg PO DAILY Qty: 60 2RF
clopidogrel 75 mg Tablet
75 mg PO DAILY Qty: 30 0RF
colchicine 0.6 mg Tablet
0.3 mg PO DAILY Qty: 30 0RF
pantoprazole 40 mg Tablet,Delayed Release (Dr/Ec)
40 mg PO DAILY Qty: 30 0RF
gabapentin 100 mg Capsule
100 mg PO TID Qty: 30 0RF
oxycodone 5 mg Tablet
5 mg PO Q4HPRN PRN (Reason: severe pain) Qty: 15 0RF
metoprolol succinate 25 mg Tablet Extended Release 24 Hr
12.5 mg PO BID Qty: 60 1RF
Continued
aspirin 81 mg Tablet,Chewable
81 mg PO DAILY
rosuvastatin 20 mg Tablet
20 mg PO QPM
Held
zolpidem 10 mg Tablet
10 mg PO HS PRN (Reason: insomnia)
Hold Instructions: Resume on 12/07/23.
Discontinued
metoprolol succinate 25 mg Tablet Extended Release 24 Hr
12.5 mg PO QPM
Discharge Orders:
Discharge Patient (As Directed); Ordered 10/26/23
Ordered By: Ebony Woodard
Care Plan Goals
Care Plan Goals:
Problem: Readiness for enhanced knowledge related to diagnosis and treatment plan
Goal: Understand your diagnosis and treatment plan needs, including medications if applicable.
Instructions: Know your diagnosis, underlying causes and treatment plan options, including medications if applicable. Consult with your health care team to learn about your diagnosis and treatment plan, including medications if applicable.
Discharge Date and Time
Print Language: YI
[2023-10-26 11:48] VITALS: BP 100/68
[2023-10-26] MEDS: NSS IV (11:50)
--- NOTE | 2023-10-26 15:02 | PTCARENOTE ---
Pain medication administered as per APR for 5 sternal incision pain. Discharge ordered for pt. Discharge instructions given to pt with spouse in the room. Patient verbalizes understanding. Tele monitor and IV removed. Pt discharged in a wheel
chair with staff escort to home with his .
== END 2023-10-26 15:41 | disposition home or self-care (01) | DRG 236 ==
LOC: IVU 05:08
PROVIDERS: Anesthesiology; Nurse Practitioner; Physician Assistant Medical; ADMITTING PHYSICIAN Thoracic Surgery (Cardiothoracic Vascular Surgery); CONSULT PHYSICIAN Internal Medicine Critical Care Medicine; FAMILY PHYSICIAN Family Medicine
PROC: B24BZZ4 Ultrasonography of Heart with Aorta, Transesophageal (ICD-10-PCS; 2023-10-22)
PROC: 03BC4ZZ Excision of Left Radial Artery, Percutaneous Endoscopic Approach (ICD-10-PCS; 2023-10-22)
PROC: 02100Z9 Bypass Coronary Artery, One Artery from Left Internal Mammary, Open Approach (ICD-10-PCS; 2023-10-22)
PROC: 021109W Bypass Coronary Artery, Two Arteries from Aorta with Autologous Venous Tissue, Open Approach (ICD-10-PCS; 2023-10-22)
PROC: 06BP4ZZ Excision of Right Saphenous Vein, Percutaneous Endoscopic Approach (ICD-10-PCS; 2023-10-22)
PROC: 5A1221Z Performance of Cardiac Output, Continuous (ICD-10-PCS; 2023-10-22)
PROC: 02100AW Bypass Coronary Artery, One Artery from Aorta with Autologous Arterial Tissue, Open Approach (ICD-10-PCS; 2023-10-22)
DX: I25.118 Atherosclerotic heart disease of native coronary artery with other forms of angina pectoris (principal); D62 Acute posthemorrhagic anemia; I30.8 Other forms of acute pericarditis; J98.11 Atelectasis; R00.0 Tachycardia, unspecified; E86.1 Hypovolemia; E87.70 Fluid overload, unspecified; R00.1 Bradycardia, unspecified; I10 Essential (primary) hypertension; E78.5 Hyperlipidemia, unspecified; M19.90 Unspecified osteoarthritis, unspecified site; G47.00 Insomnia, unspecified; I25.82 Chronic total occlusion of coronary artery; R91.8 Other nonspecific abnormal finding of lung field; Z82.49 Family history of ischemic heart disease and other diseases of the circulatory system; Z79.82 Long term (current) use of aspirin; Z87.442 Personal history of urinary calculi
CPT/HCPCS: 36415; 71045; 71046; 80048; 80053; 81003; 82248; 82330; 82565; 82805; 82810; 82947; 82962; 83036; 83735; 84132; 84302; 84520; 85014; 85018; 85025; 85027; 85049; 85610; 85730; 86803; 86850; 86900; 86901; 86920; 87070; 93005; 93312; 93320; 93325; 93880; 94002; J2916

== ENCOUNTER 2023-12-10 10:46 | Outpatient (RCR) | payer OTHER, SELFPAY | END 2023-12-10 23:59 | disposition home or self-care (01) | LOC: CRHB 10:46 | PROVIDERS: ATTENDING PHYSICIAN Nuclear Medicine Nuclear Cardiology; FAMILY PHYSICIAN Family Medicine | DX: I50.32 Chronic diastolic (congestive) heart failure (principal); Z95.1 Presence of aortocoronary bypass graft | CPT/HCPCS: 93797; 93798 ==

== ENCOUNTER 2023-12-31 10:09 | Outpatient (RCR) | payer OTHER, SELFPAY | END 2023-12-31 23:59 | disposition home or self-care (01) | LOC: CRHB 10:09 | PROVIDERS: ATTENDING PHYSICIAN Nuclear Medicine Nuclear Cardiology; FAMILY PHYSICIAN Family Medicine | DX: Z95.1 Presence of aortocoronary bypass graft (principal) | CPT/HCPCS: 93797; 93798 ==

== ENCOUNTER → 2024-01-14 13:32 | Outpatient (REF) | payer OTHER, SELFPAY | LOC: DHSLP 13:32 | PROVIDERS: ATTENDING PHYSICIAN Internal Medicine Critical Care Medicine; FAMILY PHYSICIAN Family Medicine | DX: G47.33 Obstructive sleep apnea (adult) (pediatric) (principal) | CPT/HCPCS: 95800 ==

== ENCOUNTER → 2024-01-19 09:13 | Outpatient (REF) | payer OTHER, SELFPAY | LOC: HWRAD 09:13 | PROVIDERS: ATTENDING PHYSICIAN Nurse Practitioner Adult Health | DX: R91.8 Other nonspecific abnormal finding of lung field (principal) | CPT/HCPCS: 71250 ==

== ENCOUNTER → 2024-05-02 15:50 | Outpatient (REF) | payer OTHER, SELFPAY | LOC: HWRCS 15:50 | PROVIDERS: ATTENDING PHYSICIAN Nuclear Medicine Nuclear Cardiology; FAMILY PHYSICIAN Family Medicine | DX: I25.10 Atherosclerotic heart disease of native coronary artery without angina pectoris (principal); Z95.1 Presence of aortocoronary bypass graft | CPT/HCPCS: 93306 ==

== ENCOUNTER → 2024-09-20 10:51 | Outpatient (REF) | payer OTHER, SELFPAY | LOC: RAD 10:51 | PROVIDERS: ATTENDING PHYSICIAN Family Medicine | DX: Z77.018 Contact with and (suspected) exposure to other hazardous metals (principal) | CPT/HCPCS: 70030 ==